=== PATIENT | female | born 1980 | race Caucasian/White ===

== ENCOUNTER 2017-04-13 18:36 | Emergency (ER) | payer OTHER ==
--- NOTE | 2017-04-13 18:59 | PDOC ---
Rapid Medical Evaluation Time Seen by Provider: 04/13/17 18:55 Medical Evaluation: Allergies Allergy/AdvReac Type Severity Reaction Status Date / Time No Known Drug Allergies Allergy Verified 04/13/17 18:54 04/13/17 18:55 The patient presents with a chief complaint of: [Abdominal pain radiating to the back. ] I have performed a brief in-person evaluation of this patient. Pertinent physical exam findings: vss, [RUQ pain, Abdomen is soft. RRR, Lungs clear on assessment. ] I have ordered the following: [Labs, Urinalysis, Urine , EKG. lipase ] The patient will proceed to the ED for further evaluation. Discharge Disposition - Diagnosis Abdominal pain Qualifiers: Abdominal location: right upper quadrant Qualified Code(s): R10.11 - Right upper quadrant pain - Referrals - Patient Instructions - Post Discharge Activity
[2017-04-13 19:00] VITALS: PULSE 72; BMI 25.7
[2017-04-13 20:31] LABS: BASO % 0.4 % (0-2.0); EOS % 0.3 % (0-4.5); HEMATOCRIT 34.7 % (32.4-45.2); HEMOGLOBIN 11.5 GM/dL (10.7-15.3); LYMPH % 46.5 % (8-40); MCH 25.8 pg (25.7-33.7); MCHC 33.1 g/dl (32.0-36.0); MEAN PLT VOLUME 7.9 fl (7.5-11.1); MONO % 5.3 % (3.8-10.2); NEUT % 47.5 % (42.8-82.8); PLATELET COUNT 136 K/MM3 (134-434); RBC 4.45 M/mm3 (3.60-5.2); RDW 14.8 % (11.6-15.6)
[2017-04-13 20:32] LABS: URINE APPEARANCE CLEAR; URINE BILIRUBIN NEGATIVE (NEGATIVE); URINE BLOOD 1+ (NEGATIVE); URINE COLOR YELLOW; URINE GLUCOSE (UA) NEGATIVE (NEGATIVE); URINE KETONE NEGATIVE (NEGATIVE); URINE LEUK ESTERASE NEGATIVE (NEGATIVE); URINE NITRITE NEGATIVE (NEGATIVE)
[2017-04-13 20:37] LABS: URINE PROTEIN 1+ (NEGATIVE)
[2017-04-13 20:38] LABS: EPI CELLS RARE /HPF (FEW); URINE MUCUS RARE
[2017-04-13 21:00] LABS: ALBUMIN 3.5 g/dl (3.4-5.0); ALK PHOS 69 U/L (45-117); ANION GAP 8 (8-16); BILIRUBIN,TOTAL 0.2 mg/dL (0.2-1.0); BLOOD UREA NITROGEN 15 mg/dL (7-18); CALCIUM 8.1 mg/dL (8.5-10.1); CHLORIDE 103 mmol/L (98-107); CO2 24 mmol/L (21-32); CREATININE 0.6 mg/dL (0.55-1.02); GLUCOSE,RANDOM 103 mg/dL (74-106); LIPASE 124 U/L (73-393); SGOT/AST 27 U/L (15-37); SGPT/ALT 27 U/L (12-78); SODIUM 135 mmol/L (136-145); TOT PROT 7.6 g/dl (6.4-8.2)
--- NOTE | 2017-04-13 22:18 | PDOC ---
History of Present Illness - General Chief Complaint: Pain Stated Complaint: CHEST PAIN Time Seen by Provider: 04/13/17 18:55 History Source: Patient - History of Present Illness Initial Comments: 04/13/17 22:26 36 year old female with three day history of worsening nausea, and epigastric pain radiating to the back. denies urinary symptoms, vomiting , diarrhea, fever , sick contacts. Past History - Past Medical History Allergies/Adverse Reactions: Allergies Allergy/AdvReac Type Severity Reaction Status Date / Time No Known Drug Allergies Allergy Verified 04/13/17 18:54 Home Medications: Ambulatory Orders Acetaminophen [Tylenol .Regular Strength -] 650 mg PO Q3H PRN #0 tablet Ibuprofen [Motrin -] 600 mg PO Q4H PRN #0 tablet 11/20/11 Famotidine [Pepcid -] 20 mg PO BID #14 tablet 04/14/17 Sucralfate [Carafate -] 1 gm PO TID #20 tablet 04/14/17 Asthma: No Cancer: No Cardiac Disorders: No COPD: No Diabetes: No HTN: No Seizures: No Thyroid Disease: No - Suicide/Smoking/Psychosocial Hx Smoking History: Never smoked Have you smoked in the past 12 months: No Information on smoking cessation initiated: No Hx Alcohol Use: No Drug/Substance Use Hx: No Substance Use Type: None Hx Substance Use Treatment: No Review of Systems - Review of Systems Able to Perform ROS?: Yes Is the patient limited Filipino proficient: No ABD/GI: Yes: Nausea, Abdominal cramping (epigastric) : No: Symptoms Reported, See HPI, Burning, Dysuria, Discharge, Frequency, Flank Pain, Hematuria, Incontinence, Pain, Urgency, Testicular Mass, Testicular Swelling, Lesions, Testicular Pain, Other *Physical Exam - Vital Signs Last Vital Signs Temp Pulse Resp BP Pulse Ox 98.6 F 72 18 126/75 100 04/13/17 18:57 04/13/17 18:57 04/13/17 18:57 04/13/17 18:57 04/13/17 18:57 - Physical Exam General Appearance: Yes: Appropriately Dressed Respiratory/Chest: positive: Lungs Clear, Normal Breath Sounds Cardiovascular: positive: Regular Rhythm, Regular Rate Gastrointestinal/Abdominal: positive: Normal Bowel Sounds, Soft Heart Score/ECG Review - ECG Intrepretation Rhythm: Regular Rhythm Comment:: 04/14/17 01:32 87bpm: NSR, lateral infarct ED Treatment Course - LABORATORY CBC & Chemistry Diagram: 04/13/17 20:11 04/13/17 20:11 - ADDITIONAL ORDERS Additional order review: Laboratory Results 04/13/17 04/13/17 04/13/17 20:11 20:00 20:00 Sodium 135 L Potassium 4.0 Chloride 103 Carbon Dioxide 24 Anion Gap 8 BUN 15 Creatinine 0.6 Creat Clearance w eGFR > 60 Random Glucose 103 Calcium 8.1 L Total Bilirubin 0.2 D AST 27 ALT 27 Alkaline Phosphatase 69 Total Protein 7.6 Albumin 3.5 Lipase 124 Urine Color Yellow Urine Appearance Clear Urine pH 5.0 Ur Specific Wheeler 1.026 Urine Protein 1+ H Urine Glucose (UA) Negative Urine Ketones Negative Urine Blood 1+ H Urine Nitrite Negative Urine Bilirubin Negative Urine Urobilinogen 2.0 H Ur Leukocyte Esterase Negative Urine WBC (Auto) 2 Urine RBC (Auto) 8 Ur Epithelial Cells Rare Urine Mucus Rare Urine HCG, Qual Negative 04/13/17 20:11 RBC 4.45 MCV 78.0 L MCHC 33.1 RDW 14.8 MPV 7.9 Neutrophils % 47.5 Lymphocytes % 46.5 H D Monocytes % 5.3 Eosinophils % 0.3 Basophils % 0.4 Progress Note - Progress Note Progress Note: A: cholelithiasis P; cbc cmp ua ucx Medical Decision Making - Medical Decision Making 04/14/17 00:21 all results discussed with patient using a [employer] neonatal nurse practitioner phone. strict return precautions reviewed with patient. 04/14/17 01:42 patient reports pain. will reevaluate prior to discharge. 04/14/17 03:39 patient continue to have pain. will give morphine. CTAP pending 04/14/17 05:29 pain improved. CTAP: WNL. will d/c home to follow up with GI. 04/14/17 06:26 Pain improved. will d/c home with close GI/ Surgery follow up/. *DC/Admit/Observation/Transfer Diagnosis at time of Disposition: Abdominal pain Qualifiers: Abdominal location: right upper quadrant Qualified Code(s): R10.11 - Right upper quadrant pain Cholelithiasis Qualifiers: Cholelithiasis location: gallbladder Cholecystitis presence: without cholecystitis Biliary obstruction: without biliary obstruction Qualified Code(s) : K80.20 - Calculus of gallbladder without cholecystitis without obstruction - Discharge Dispostion Disposition: HOME - Prescriptions Prescriptions: Famotidine [Pepcid -] 20 mg PO BID #14 tablet Sucralfate [Carafate -] 1 gm PO TID #20 tablet - Referrals Referrals: Galindo Gaviria MD [Staff Physician] - Call tomorrow - Patient Instructions Printed Discharge Instructions: Gallstones Additional Instructions: follow up with a surgeon/ GI doctor as soon as possible. avoid fatty food. start a bland diet continue carafate and pepcid as ordered. return to the ER if symptoms worsen. Print Language: SLOVENIAN - Post Discharge Activity Forms/Work/School Notes: Back to Work
[2017-04-13] MEDS ORDERED: ONDANSETRON 4 MG/2 ML VIAL IVPUSH ONE (22:23)
[2017-04-13] MEDS ORDERED: FAMOTIDINE IV 20 MG/12 ML VIAL IVPUSH ONE (22:33)
[2017-04-13] MEDS ORDERED: ONDANSETRON 4 MG/2 ML VIAL ONE (22:35)
[2017-04-13] MEDS ORDERED: DICYCLOMINE HCL 20 MG TABLET PO ONE (23:25)
[2017-04-13] MEDS ORDERED: FAMOTIDINE 20 MG/50 ML IVPB 20 MG/50 ML MG IVPB ONE (23:26)
[2017-04-13] MEDS ORDERED: DICYCLOMINE HCL 10 MG CAPSULE ONE (23:26)
[2017-04-13] MEDS ORDERED: morphine CARPU-JECT 2 MG/1 ML DISP.SYRIN IVPUSH ONE (23:36)
[2017-04-14] MEDS ORDERED: ACETAMINOPHEN 325 MG TABLET (FP) PO ONE (00:18)
[2017-04-14] MEDS ORDERED: ACETAMINOPHEN 325 MG TABLET (FP) ONE (00:27)
[2017-04-14] MEDS ORDERED: morphine CARPU-JECT 2 MG/1 ML DISP.SYRIN IVPUSH ONE (01:43)
[2017-04-14] MEDS ORDERED: morphine CARPU-JECT 4 MG/1 ML DISP.SYRIN ONE (01:45)
[2017-04-14] MEDS ORDERED: morphine CARPU-JECT 4 MG/1 ML DISP.SYRIN IVPUSH ONE (03:35)
[2017-04-14] MEDS ORDERED: HYDROmorphone HCL CARPU-JECT 1 MG/1 ML DISP.SYRIN IVPUSH ONE (03:46)
[2017-04-14] MEDS ORDERED: HYDROmorphone HCL CARPU-JECT 2 MG/1 ML DISP.SYRIN ONE (03:47)
[2017-04-14] MEDS ORDERED: KETOROLAC TROMETHAMINE 30 MG/1 ML VIAL IVPUSH ONE (05:34)
[2017-04-14] MEDS ORDERED: SUCRALFATE 1 GM TABLET (FP) ONE ×2 (05:44→05:50)
[2017-04-14] MEDS ORDERED: SUCRALFATE 1 GM/10 ML UNIT DOSE CUPS PO ONE (05:45)
[2017-04-14] MEDS ORDERED: KETOROLAC TROMETHAMINE 30 MG/1 ML VIAL ONE ×2 (05:45→05:50)
[2017-04-14 06:58] VITALS: BP 105/63; TEMP 98.1
--- NOTE | 2017-04-15 08:05 | EKG ---
Test Reason : Blood Pressure : / mmHG Vent. Rate : 087 BPM Atrial Rate : 087 BPM P-R Int : 136 ms QRS Dur : 086 ms QT Int : 344 ms P-R-T Axes : 000 121 126 degrees QTc Int : 413 ms NORMAL SINUS RHYTHM LATERAL INFARCT , AGE UNDETERMINED ABNORMAL ECG WHEN COMPARED WITH ECG OF 13-APR-2017 18:41, QRS AXIS SHIFTED RIGHT LATERAL INFARCT IS NOW PRESENT T WAVE INVERSION NOW EVIDENT IN LATERAL LEADS Confirmed by JH RIDER, NELLY ([id number]) on 04/15/2017 8:05:45 AM Referred By: Confirmed By:NELLY PEÑALOZA MD
--- NOTE | 2017-04-20 13:08 | EKG ---
Test Reason : Blood Pressure : / mmHG Vent. Rate : 069 BPM Atrial Rate : 069 BPM P-R Int : 152 ms QRS Dur : 084 ms QT Int : 412 ms P-R-T Axes : 051 057 054 degrees QTc Int : 441 ms NORMAL SINUS RHYTHM NORMAL ECG NO PREVIOUS ECGS AVAILABLE Confirmed by MELISSA BURNETTE MD ([id number]) on 04/20/2017 1:08:29 PM Referred By: Confirmed By:MELISSA BURNETTE MD
--- NOTE | 2017-04-20 13:08 | EKG ---
Test Reason : Blood Pressure : / mmHG Vent. Rate : 079 BPM Atrial Rate : 079 BPM P-R Int : 134 ms QRS Dur : 088 ms QT Int : 350 ms P-R-T Axes : 054 065 059 degrees QTc Int : 401 ms NORMAL SINUS RHYTHM POSSIBLE LEFT ATRIAL ENLARGEMENT BORDERLINE ECG WHEN COMPARED WITH ECG OF 14-APR-2017 01:30, T WAVE VARIATION Confirmed by MELISSA BURNETTE MD ([id number]) on 04/20/2017 1:08:26 PM Referred By: Confirmed By:MELISSA BURNETTE MD
== END 2017-04-14 06:46 | disposition home or self-care (01) ==
LOC: JER 18:36
PROC: 3E033NZ Introduction of Analgesics, Hypnotics, Sedatives into Peripheral Vein, Percutaneous Approach (ICD-10-PCS; principal; 2017-04-13)
PROC: 3E0333Z Introduction of Anti-inflammatory into Peripheral Vein, Percutaneous Approach (ICD-10-PCS; 2017-04-13)
PROC: 3E033GC Introduction of Other Therapeutic Substance into Peripheral Vein, Percutaneous Approach (ICD-10-PCS; 2017-04-13)
DX: K80.20 Calculus of gallbladder without cholecystitis without obstruction (principal)
CPT/HCPCS: 36415; 74176-TC; 76705-TC; 80053; 81003; 81015; 83690; 84703; 85025; 87086; 93005; 93010; 99282-25

== ENCOUNTER 2017-04-23 12:20 | Day surgery (SDC) | payer OTHER ==
[2017-04-22 17:49] VITALS: BMI 31.2
[~2017-04-23 12:20] MED LIST: BUPIVACAINE HCL/PF 0.5% (5MG/ML) 10 ML VIAL IJ ONE
[2017-04-23 12:58] LABS: INR 1.25 (0.82-1.09); PROTHROMBIN TIME (PATIENT) 14.1 SEC (9.98-11.88)
[2017-04-23] MEDS ORDERED: BUPIVACAINE HCL/PF 0.5% (5MG/ML) 10 ML VIAL ONE ×2 (13:48→14:01)
[2017-04-23] MEDS ORDERED: PROPOFOL 20 ML ONE (13:59)
[2017-04-23] MEDS ORDERED: ROCURONIUM BROMIDE 50 MG/5 ML VIAL ONE (13:59)
[2017-04-23] MEDS ORDERED: MIDAZOLAM HCL 2 MG/2 ML SINGLE DOSE VIAL ONE (14:00)
--- NOTE | 2017-04-23 14:09 | HP ---
History & Physical Update - History History: No Change - Physical Physical: No Change - Assessment Assessment: No Change - Plan Currently as noted:: For lap jimbo possible open as discussed in office 04/15/17
[2017-04-23] MEDS ORDERED: ceFAZolin SODIUM 1 GM VIAL IVPB ONE (14:24)
[2017-04-23] MEDS ORDERED: DEXAMETHASONE SOD PHOSPHATE 4 MG/1 ML VIAL ONE (14:48)
[2017-04-23] MEDS ORDERED: ceFAZolin SODIUM 1 GM VIAL ONE (14:48)
--- NOTE | 2017-04-23 14:52 | EKG ---
Test Reason : Blood Pressure : / mmHG Vent. Rate : 074 BPM Atrial Rate : 074 BPM P-R Int : 150 ms QRS Dur : 090 ms QT Int : 390 ms P-R-T Axes : 063 077 062 degrees QTc Int : 432 ms NORMAL SINUS RHYTHM NORMAL ECG WHEN COMPARED WITH ECG OF 14-APR-2017 01:50, NO SIGNIFICANT CHANGE WAS FOUND Confirmed by IRLANDA GONZALES MD ([id number]) on 04/23/2017 2:51:56 PM Referred By: Galindo Gaviria Confirmed By:IRLANDA GONZALES MD
[2017-04-23] MEDS ORDERED: IBUPROFEN 800 MG/8 ML IJ IVPB PRN (15:06)
[2017-04-23] MEDS ORDERED: ONDANSETRON 4 MG/2 ML VIAL IVPUSH PRN (15:06)
[2017-04-23] MEDS ORDERED: HYDROmorphone HCL CARPU-JECT 2 MG/1 ML DISP.SYRIN IVPUSH PRN (15:06)
[2017-04-23] MEDS ORDERED: oxyCODONE HCL 5 MG TABLET PO PRN (15:06)
[2017-04-23] MEDS ORDERED: GLYCOPYRROLATE 0.2 MG/1 ML VIAL ONE (15:12)
[2017-04-23] MEDS ORDERED: NEOSTIGMINE METHYLSULFATE 0.5 MG/ML - 10 ML MDV ONE (15:13)
[2017-04-23] MEDS ORDERED: LACTATED RINGERS SOLUTION 1,000 ML IV SCH (15:15)
[2017-04-23] MEDS ORDERED: BUPIVACAINE HCL/PF 0.5% (5MG/ML) 10 ML VIAL IJ ONE (15:22)
[2017-04-23] MEDS ORDERED: HYDROmorphone HCL CARPU-JECT 2 MG/1 ML DISP.SYRIN ONE (15:49)
--- NOTE | 2017-04-23 15:51 | OP ---
Operative Note - Note: Operative Date: 04/23/17 Pre-Operative Diagnosis: chronic cholecystitis, chronic cholelithiasis Operation: Laparoscopic cholecystectomy Post-Operative Diagnosis: Same as Pre-op Surgeon: Galindo Gaviria Kalsominer: Quiana Guardado Anesthesiologist/BLANKBOOK STITCHING MACHINE OPERATOR: Agnes Mancia Specimens Removed: gallbladder and contents Estimated Blood Loss (mls): 35 Fluid Volume Replaced (mls): 700 Operative Report Dictated: Yes
--- NOTE | 2017-04-23 15:52 | SURG ---
Surgery Web Developer Programmer Note Web Developer Programmer: Quiana Guardado PA-C Date of Service: 04/23/17 Diagnosis: chronic cholecystitis, chonic cholelithasis Procedure: laparoscopic cholecystectomy I was present for the entirety of the operative procedure. For further detail, please refer to operative report. Visit type - Case Type Case Type: Scheduled Admission - Emergency Emergency Visit: No - New patient This patient is new to me today: Yes Date on this admission: 04/23/17
[2017-04-23 16:53] VITALS: TEMP 98.2
[2017-04-23 19:24] VITALS: BP 119/68; PULSE 73
--- NOTE | 2017-04-26 14:56 | OP ---
DATE OF OPERATION: 04/23/2017 PREOPERATIVE DIAGNOSIS: Chronic cholecystitis, cholelithiasis. POSTOPERATIVE DIAGNOSIS: Chronic cholecystitis, cholelithiasis. PROCEDURE: Laparoscopic cholecystectomy. SURGEON: Galindo Gaviria MD PRODUCTION SAMPLER: JOSSELINE Holloway ANESTHESIA: General. OPERATIVE FINDINGS: Chronic cholecystitis and cholelithiasis. The rest of the findings were unremarkable. PROCEDURE: The patient was placed on the operating table in the supine position, and after the induction of general anesthesia, the patient's abdomen was prepped with ChloraPrep and draped in sterile fashion. A timeout was taken and pneumoperitoneum established above the umbilicus using a Veress needle to an intraabdominal pressure of 15 mmHg. A 5-mm supraumbilical port was placed as well as lateral 5-mm ports and a subxiphoid 12-mm port. Laparoscopy was carried out and the gallbladder was placed on cephalad and lateral traction and dissection was begun in the triangle of Calot, where adherent omentum to the gallbladder was taken down using blunt dissection and electrocautery. The peritoneum was opened over the neck of the gallbladder and the cystic duct identified and dissected proximally and distally using blunt dissection. In addition, the artery was similarly identified and dissected. Critical view of safety was taken and then the artery and duct were sequentially clipped twice proximally and twice distally with large hemoclips, were divided using the Endo Ethan after the artery and duct were clipped twice proximally and twice distally with large hemoclips. The gallbladder was then removed from the liver bed in a retrograde fashion using electrocautery. Prior to removal from the edge of the liver, hemostasis was checked for and noted to be good. The gallbladder was then removed from the edge of the liver, placed in a specimen retrieval bag and brought out through the subxiphoid port. Pneumoperitoneum was reestablished, hemostasis verified, irrigation carried out, and then all ports were removed under laparoscopic vision without evidence of bleeding from the port sites. The pneumoperitoneum was evacuated and all port sites were infiltrated with 0.5% Marcaine and the skin edges closed with 4-0 Monocryl in a subcuticular continuous fashion, followed by Steri-Strips and band-aids. The patient was aroused from general anesthesia and transferred to the post-anesthesia care unit in stable condition, awake and alert. Estimated blood loss 35 mL. Replacement was crystalloid. Drains: None. Specimens: Gallbladder and contents to Pathology. I, Galindo Gaviria, was physically present in the operating room from the time the patient was placed on the operating table until she was transferred to the post-anesthesia care unit in my accompaniment. MD ROSALIE Pool/[id number]
--- NOTE | 2017-04-27 14:44 | PATH ---
Surgical Pathology Report Patient Name: CASSANDRA AARON [facility]. Rec. #: [id number] /Age/Gender: 1980 (Age: 36) / F Account: [id number] Location: [facility] SURGICAL Taken: 04/23/2017 Received: 04/24/2017 Reported: 04/27/2017 Physicians: Galindo Gaviria MD Specimen(s) Received GALLBLADDER AND STONES Clinical History Chronic cholecystitis/cholelithiasis Final Diagnosis GALLBLADDER, CHOLECYSTECTOMY: CHRONIC CHOLECYSTITIS AND CHOLELITHIASIS. Electronically Signed Prabhakar Barajas M.D. Gross Description Received in formalin, labeled "gallbladder and stones," is a 6.2 x 1.5 x 1.3 cm. gallbladder with a 0.2 cm. in length portion of cystic duct attached. The outer surface is schafer-fraire with a focal defect and varies from smooth to shaggy. The lumen contains green, tenacious bile as well as abundant yellow, irregular to fragmented choleliths ranging from 0.1-0.6 cm in greatest dimension. The mucosa is green and focally eroded. The wall of the gallbladder measures 0.1 cm. in thickness. [place] sections are submitted in one cassette. 04/24/201704/24/2017
== END 2017-04-23 19:24 | disposition home or self-care (01) ==
LOC: JASU-SURG 12:20
PROVIDERS: ATTEND Surgery
PROC: 0FT44ZZ Resection of Gallbladder, Percutaneous Endoscopic Approach (ICD-10-PCS; principal; 2017-04-23 14:00)
DX: K80.10 Calculus of gallbladder with chronic cholecystitis without obstruction (principal)
CPT/HCPCS: 36415; 84703; 85610; 86850; 86900; 86901; 88304-TC; 93005; 93010; 94760

== ENCOUNTER 2017-05-07 13:32 | Inpatient (IN) | payer OTHER ==
--- NOTE | 2017-05-07 15:15 | PDOC ---
History of Present Illness - General Chief Complaint: Revisit, Lab Variance Stated Complaint: SENT BY PCP Time Seen by Provider: 05/07/17 15:13 History Source: Patient, Significant Other - History of Present Illness Initial Comments: 05/07/17 15:27 Patient is a 36-year-old female status post cholecystectomy on 04/23/17, no other past medical history, who presents emergency department today with body aches, headache, and abnormal lab workup. Patient states she was seen by her primary care doctor Dr. Christianson this afternoon. She was sent to the emergency department after her appointment for further workup. Patient states that she has had a headache for 2 weeks that has not resolved. She also states she has right leg pain and that her whole body hurts. Her boyfriend states that she is usually able to play soccer however due to the pain and fatigue she's been unable to play recently. Denies nausea, vomiting, abdominal pain, diarrhea, fever, sore throat, dizziness, lightheadedness, chest pain, shortness of breath and difficulty breathing. Past History - Travel Traveled outside of the country in the last 30 days: No Close contact w/someone who was outside of country & ill: No - Past Medical History Allergies/Adverse Reactions: Allergies Allergy/AdvReac Type Severity Reaction Status Date / Time No Known Drug Allergies Allergy Verified 05/07/17 13:38 Home Medications: Ambulatory Orders NK [No Known Home Medication] 05/07/17 Anemia: No Asthma: No Cancer: No Cardiac Disorders: No CVA: No COPD: No CHF: No DVT: No Dementia: No Diabetes: No GI Disorders: No Disorders: No HTN: No Hypercholesterolemia: No Liver Disease: No Seizures: No Thyroid Disease: No - Immunization History Immunization Up to Date: Yes - Suicide/Smoking/Psychosocial Hx Smoking History: Never smoked Have you smoked in the past 12 months: No Information on smoking cessation initiated: No Hx Alcohol Use: No Drug/Substance Use Hx: No Substance Use Type: None Hx Substance Use Treatment: No Review of Systems - Review of Systems Able to Perform ROS?: Yes Comments:: 05/07/17 15:53 CONSTITUTIONAL: Present: malaise, body aches, fatigue Absent: fever, chills, diaphoresis, generalized weakness, loss of appetite HEENT: Absent: rhinorrhea, nasal congestion, throat pain, throat swelling, difficulty swallowing, mouth swelling, ear pain, eye pain, visual Changes CARDIOVASCULAR: Absent: chest pain, loss of consciousness, palpitations, irregular heart rate, peripheral edema RESPIRATORY: Absent: cough, shortness of breath, dyspnea with exertion, orthopnea, wheezing, stridor, hemoptysis GASTROINTESTINAL: Absent: abdominal pain, abdominal distension, nausea, vomiting, diarrhea, constipation, melena, hematochezia GENITOURINARY: Absent: dysuria, frequency, urgency, hesitancy, hematuria, flank pain, genital pain MUSCULOSKELETAL: Present: R leg pain Absent: arthralgia, joint swelling SKIN: Absent: rash, itching, pallor HEMATOLOGIC/IMMUNOLOGIC: Absent: easy bleeding, easy bruising, lymphadenopathy, frequent infections ENDOCRINE: Absent: unexplained weight gain, unexplained weight loss, heat intolerance, cold intolerance NEUROLOGIC: Present: headache Absent: focal weakness or paresthesias, dizziness, unsteady gait, seizure, mental status changes, bladder or bowel incontinence PSYCHIATRIC: Absent: anxiety, depression, suicidal or homicidal ideation, hallucinations. Is the patient limited Slovak proficient: No *Physical Exam - Vital Signs Last Vital Signs Temp Pulse Resp BP Pulse Ox 98.6 F 113 H 17 129/96 96 05/07/17 13:39 05/07/17 13:39 05/07/17 13:39 05/07/17 13:39 05/07/17 13:39 - Physical Exam Comments: 05/07/17 15:55 GENERAL: Well developed, well nourished. Awake and alert. No acute distress. HEENT: Normocephalic, atraumatic. PERRLA, EOMI. No conjunctival pallor. Sclera are non- icteric. Moist mucous membranes. Oropharynx is clear. NECK: Supple. Full ROM. No JVD. Carotid pulses 2+ and symmetric, without bruits. No thyromegaly. No lymphadenopathy. CARDIOVASCULAR: Regular rate and rhythm. No murmurs, rubs, or gallops. Distal pulses are 2+ and symmetric. PULMONARY: No evidence of respiratory distress. Lungs clear to auscultation bilaterally. No wheezing, rales or rhonchi. ABDOMINAL: Soft. Non-tender. Non-distended. No rebound or guarding. No organomegaly. Normoactive bowel sounds. MUSCULOSKELETAL Normal range of motion at all joints. No bony deformities or tenderness. No CVA tenderness. EXTREMITIES: No cyanosis. No clubbing. No edema. No calf tenderness. SKIN: Warm and dry. Normal capillary refill. No rashes. No jaundice. NEUROLOGICAL: Alert, awake, appropriate. Cranial nerves 2-12 intact. No deficits to light touch and temperature in face, upper extremities and lower extremities. No motor deficits in the in face, upper extremities and lower extremities. Normoreflexic in the upper and lower extremities. Normal speech. Toes are down- going bilaterally. Gait is normal without ataxia. PSYCHIATRIC: Cooperative. Good eye contact. Appropriate mood and affect. ED Treatment Course - LABORATORY CBC & Chemistry Diagram: 05/07/17 15:30 05/07/17 15:30 Medical Decision Making - Medical Decision Making 05/07/17 15:55 Patient is a 36-year-old female past medical history of cholecystectomy on , who presents emergency department today complaining of headaches and generalized body aches for 2 weeks. Patient presented with basic lab work done by her primary care doctor Dr. Christianson. Notable labs show a platelet count of 86, blast-like cells, myelocytes, metamyelocytes, elevated liver enzymes. Post surgical vs leukemia?Will repeat lab work at this time. We will also obtain right upper quadrant ultrasound as well as head CT due to the headache. D/t R lower leg pain and recent surgery, will r/o DVT. 1.CBC, CMP, PT/INR, lipase, UA, UC, U 2. Reglan and Benadryl IV fluids 3.head CT, right upper quadrant ultrasound, right lower extremity ultrasound 4.reevaluate 05/07/17 17:[address]: Negative for bleed, ischemia, or mass at this time Labs notable for thrombocytopenia at 85. This is markedly changed from 2017. Liver enzymes are also elevated and doubled. Bilirubin is normal at this time. Waiting on ultrasound results. Pt. feeling better after reglan and zofran. Lab called to report atypical lymphocytes and blast cells in the peripheral smear. First page Dr. Gaviria to discuss patient. 05/07/17 17:[address] Gaviria. Discussed the case. States that in the setting of no abdominal pain, no fever, and normal bilirubin, will wait for ultrasound results. 05/07/17 18:28 US RLE: negative for DVT Abdomen Ultrasound results discussed with Dr. Gaviria. No common biliary duct dilatation, residual fluid in the gallbladder fossa a normal finding after surgery. Given no abdominal pain, normal bilirubin, and no duct dilitaton, less likely retained stone. Will call [facility] at this time for admission for thrombocytopenia and elevated liver enzymes. Anticipate heme/onc work up. 05/07/17 18:[address] Reyes, Case discussed and agrees with admission at this time. Admission order under Dr. Nelson *DC/Admit/Observation/Transfer Diagnosis at time of Disposition: Elevated liver enzymes, Thrombocytopenia - Discharge Dispostion Condition at time of disposition: Stable Admit: Yes - Referrals - Patient Instructions - Post Discharge Activity
[2017-05-07] MEDS ORDERED: SODIUM CHLORIDE 1,000 ML IV ONE (16:00)
[2017-05-07] MEDS ORDERED: METOCLOPRAMIDE HCL INJECTION 10 MG/2 ML VIAL IVPB ONE (16:02)
[2017-05-07 16:04] LABS: HEMATOCRIT 30.1 % (32.4-45.2); HEMOGLOBIN 9.9 GM/dL (10.7-15.3); MCH 25.5 pg (25.7-33.7); MEAN CELL VOLUME 77.2 fl (80-96); MEAN PLT VOLUME 7.6 fl (7.5-11.1); PLATELET COUNT 85 K/MM3 (134-434); RDW 15.3 % (11.6-15.6); WHITE BLOOD COUNT 5.5 K/mm3 (4.0-10.0)
[2017-05-07 16:10] LABS: INR 1.12 (0.82-1.09); PROTHROMBIN TIME (PATIENT) 12.6 SEC (9.98-11.88)
[2017-05-07] MEDS ORDERED: METOCLOPRAMIDE HCL INJECTION 10 MG/2 ML VIAL ONE (16:14)
[2017-05-07 16:25] LABS: ALBUMIN 2.9 g/dl (3.4-5.0); ANION GAP 8 (8-16); BILIRUBIN,TOTAL 0.5 mg/dL (0.2-1.0); BLOOD UREA NITROGEN 6 mg/dL (7-18); CALCIUM 7.8 mg/dL (8.5-10.1); CHLORIDE 101 mmol/L (98-107); CO2 28 mmol/L (21-32); CREATININE 0.4 mg/dL (0.55-1.02); GLUCOSE,RANDOM 86 mg/dL (74-106); POTASSIUM 3.7 mmol/L (3.5-5.1); SGOT/AST 116 U/L (15-37); SODIUM 137 mmol/L (136-145); TOT PROT 7.3 g/dl (6.4-8.2)
[2017-05-07 16:28] LABS: URINE APPEARANCE CLEAR; URINE BILIRUBIN NEGATIVE (NEGATIVE); URINE BLOOD 1+ (NEGATIVE); URINE COLOR YELLOW; URINE GLUCOSE (UA) NEGATIVE (NEGATIVE); URINE KETONE NEGATIVE (NEGATIVE); URINE LEUK ESTERASE NEGATIVE (NEGATIVE); URINE NITRITE NEGATIVE (NEGATIVE)
[2017-05-07 16:29] LABS: URINE PROTEIN 1+ (NEGATIVE)
[2017-05-07 16:34] LABS: EPI CELLS RARE /HPF (FEW); URINE MUCUS RARE
[2017-05-07 16:37] LABS: ALK PHOS 546 U/L (45-117); SGPT/ALT 130 U/L (12-78)
--- NOTE | 2017-05-07 18:47 | PDOC ---
*Physical Exam - Vital Signs Last Vital Signs Temp Pulse Resp BP Pulse Ox 98.0 F 88 16 110/64 99 05/07/17 18:02 05/07/17 18:02 05/07/17 18:02 05/07/17 18:02 05/07/17 18:02 ED Treatment Course - LABORATORY CBC & Chemistry Diagram: 05/08/17 08:22 05/08/17 08:22 - ADDITIONAL ORDERS Additional order review: Laboratory Results 05/07/17 05/07/17 05/07/17 16:11 16:01 15:30 PT with INR INR Sodium Potassium Chloride Carbon Dioxide Anion Gap BUN Creatinine Creat Clearance w eGFR Random Glucose Calcium Total Bilirubin AST ALT Alkaline Phosphatase Total Protein Albumin Lipase Urine Color Yellow Urine Appearance Clear Urine pH 6.0 Ur Specific [place] 1.014 Urine Protein 1+ H Urine Glucose (UA) Negative Urine Ketones Negative Urine Blood 1+ H Urine Nitrite Negative Urine Bilirubin Negative Urine Urobilinogen 2.0 H Ur Leukocyte Esterase Negative Urine WBC (Auto) 2 Urine RBC (Auto) 1 Ur Epithelial Cells Rare Urine Mucus Rare Urine HCG, Qual Negative Blood Type O POSITIVE Antibody Screen Negative 05/07/17 05/07/17 05/07/17 15:30 15:30 14:15 PT with INR 12.60 H INR 1.12 Sodium 137 Potassium 3.7 Chloride 101 Carbon Dioxide 28 Anion Gap 8 BUN 6 L Creatinine 0.4 L Creat Clearance w eGFR > 60 Random Glucose 86 Calcium 7.8 L Total Bilirubin 0.5 D AST 116 H ALT 130 H Alkaline Phosphatase 546 H Total Protein 7.3 Albumin 2.9 L Lipase 172 Urine Color Urine Appearance Urine pH Ur Specific [place] Urine Protein Urine Glucose (UA) Urine Ketones Urine Blood Urine Nitrite Urine Bilirubin Urine Urobilinogen Ur Leukocyte Esterase Urine WBC (Auto) Urine RBC (Auto) Ur Epithelial Cells Urine Mucus Urine HCG, Qual Blood Type Antibody Screen 05/07/17 15:30 RBC 3.90 MCV 77.2 L MCHC 33.0 RDW 15.3 MPV 7.6 Neutrophils % No Result Required. Lymphocytes % No Result Required. - Medications Given in the ED: ED Medications Discontinued Medications Generic Name Dose Route Start Last Admin Trade Name Freq PRN Reason Stop Dose Admin Metoclopramide HCl 10 mg 05/07/17 16:02 05/07/17 16:22 Reglan Injection - IVPB 05/07/17 16:03 10 mg ONCE ONE Administration Medical Decision Making - Medical Decision Making 05/07/17 18:46 Pt seen by the Advanced Practice Provider under my direct supervision Pt interviewed and examined Ancillary studies reviewed I agree with plan as outlined by the Advanced Practice Provider JOSSELINE [place] I agree. Patient will need a surgery, GI, and heme consult for further workup and management. *DC/Admit/Observation/Transfer Diagnosis at time of Disposition: Elevated liver enzymes, Thrombocytopenia - Discharge Dispostion Condition at time of disposition: Stable - Referrals - Patient Instructions - Post Discharge Activity
[2017-05-07] MEDS ORDERED: ONDANSETRON 4 MG TABLET PO PRN (19:06)
--- NOTE | 2017-05-07 19:39 | HP ---
CHIEF COMPLAINT: PCP: Dr. Lam HISTORY OF PRESENT ILLNESS: This is a 36 year old female with no known past medical history presents to the emergency room with generalized body weakness and headache that has progressively gotten worse over the past week. Headache provoked ER visit. She admits tot he decrease appetite and 16lb unintentional wt loss over the past month. She is s/p lap jimbo on 04/23/17. She denies fever, chills, n, v, d, abdominal pain, chest pain, sob, leg swelling, recent travel or sick contacts. Family brought in lab work from day prior that was significant for blasts cells and metamyelocytes on cbc. ER course was notable for elevated liver enzymes and alk phos. Abdominal US showing fatty sac wehre gallbladder was; cannot r/o infection/bile leak. Recent Travel: no PAST MEDICAL HISTORY: hyperglycemia; PAST SURGICAL HISTORY: lap cholecystectomy Social History: Smoking:no Alcohol:no Drugs: no Family History: Allergies No Known Drug Allergies Allergy (Verified 05/07/17 13:38) HOME MEDICATIONS: Home Medications Medication Instructions Recorded NK [No Known Home Medication] 05/07/17 REVIEW OF SYSTEMS as above PHYSICAL EXAMINATION Vital Signs - 24 hr 05/07/17 05/07/17 13:39 18:02 Temperature 98.6 F 98.0 F Pulse Rate 113 H Pulse Rate [ 88 Apical] Respiratory 17 16 Rate Blood Pressure 129/96 Blood Pressure 110/64 [Left Arm] O2 Sat by Pulse 96 99 Oximetry (%) GENERAL: Awake, alert, and fully oriented, in no acute distress. HEAD: Normal with no signs of trauma. EYES: Pupils equal, round and reactive to light, extraocular movements intact, sclera anicteric, conjunctiva clear. No lid lag. EARS, NOSE, THROAT: Ears normal, nares patent, oropharynx clear without exudates. Moist mucous membranes. NECK: Normal range of motion, supple without lymphadenopathy, JVD, or masses. LUNGS: Breath sounds equal, clear to auscultation bilaterally. No wheezes, and no crackles. No accessory muscle use. HEART: Regular rate and rhythm, normal S1 and S2 without murmur, rub or gallop. ABDOMEN: Soft, nontender, not distended, normoactive bowel sounds, no guarding, no rebound, no masses. No hepatomegaly or splenomegaly. MUSCULOSKELETAL: Normal range of motion at all joints. No bony deformities or tenderness. No CVA tenderness. UPPER EXTREMITIES: 2+ pulses, warm, well-perfused. No cyanosis. No clubbing. No peripheral edema. LOWER EXTREMITIES: 2+ pulses, warm, well-perfused. No calf tenderness. No peripheral edema. NEUROLOGICAL: Cranial nerves II-XII intact. Normal speech. Normal gait. PSYCHIATRIC: Cooperative. Good eye contact. Appropriate mood and affect. SKIN: Warm, dry, normal turgor, no rashes or lesions noted, normal capillary refill. Laboratory Results - last 24 hr 05/07/17 05/07/17 05/07/17 14:15 15:30 15:30 WBC 5.5 RBC 3.90 Hgb 9.9 L D Hct 30.1 L MCV 77.2 L MCH 25.5 L MCHC 33.0 RDW 15.3 Plt Count 85 L D MPV 7.6 Neutrophils % No Result Required. Lymphocytes % No Result Required. PT with INR 12.60 H INR 1.12 Sodium Potassium Chloride Carbon Dioxide Anion Gap BUN Creatinine Creat Clearance w eGFR Random Glucose Calcium Total Bilirubin AST ALT Alkaline Phosphatase Total Protein Albumin Lipase 172 Urine Color Urine Appearance Urine pH Ur Specific [place] Urine Protein Urine Glucose (UA) Urine Ketones Urine Blood Urine Nitrite Urine Bilirubin Urine Urobilinogen Ur Leukocyte Esterase Urine WBC (Auto) Urine RBC (Auto) Ur Epithelial Cells Urine Mucus Urine HCG, Qual Blood Type Antibody Screen 05/07/17 05/07/17 05/07/17 15:30 15:30 16:01 WBC RBC Hgb Hct MCV MCH MCHC RDW Plt Count MPV Neutrophils % Lymphocytes % PT with INR INR Sodium 137 Potassium 3.7 Chloride 101 Carbon Dioxide 28 Anion Gap 8 BUN 6 L Creatinine 0.4 L Creat Clearance w eGFR > 60 Random Glucose 86 Calcium 7.8 L Total Bilirubin 0.5 D AST 116 H ALT 130 H Alkaline Phosphatase 546 H Total Protein 7.3 Albumin 2.9 L Lipase Urine Color Yellow Urine Appearance Clear Urine pH 6.0 Ur Specific [place] 1.014 Urine Protein 1+ H Urine Glucose (UA) Negative Urine Ketones Negative Urine Blood 1+ H Urine Nitrite Negative Urine Bilirubin Negative Urine Urobilinogen 2.0 H Ur Leukocyte Esterase Negative Urine WBC (Auto) 2 Urine RBC (Auto) 1 Ur Epithelial Cells Rare Urine Mucus Rare Urine HCG, Qual Blood Type O POSITIVE Antibody Screen Negative 05/07/17 16:11 WBC RBC Hgb Hct MCV MCH MCHC RDW Plt Count MPV Neutrophils % Lymphocytes % PT with INR INR Sodium Potassium Chloride Carbon Dioxide Anion Gap BUN Creatinine Creat Clearance w eGFR Random Glucose Calcium Total Bilirubin AST ALT Alkaline Phosphatase Total Protein Albumin Lipase Urine Color Urine Appearance Urine pH Ur Specific [place] Urine Protein Urine Glucose (UA) Urine Ketones Urine Blood Urine Nitrite Urine Bilirubin Urine Urobilinogen Ur Leukocyte Esterase Urine WBC (Auto) Urine RBC (Auto) Ur Epithelial Cells Urine Mucus Urine HCG, Qual Negative Blood Type Antibody Screen ASSESSMENT/PLAN: This is a 36 year old female with generalized weakness and body pain, with recent lap jimbo and lab work stating new blast cells. Will get heme work up. #weakness/abnormal smear: r/o leukemia -blasts/metamyelocytes found on smear; -pathologist to review in am -IVF -heme/onc consult #elevated liver enzymes:\ -abdominal US sowing fatty area in place of gallbladder; cannot r/o infection/ bile leak -will trend CMP -hepatitis panel -sx consult #DM: Hemoglobin A1C on recent lab work 6.4 -BGM -insulin ss Fluids: NS 125mls/hr x 1 bag Electrolytes monitor Diet: diabetic VTE: heparin sq Disposition: med surg Case discussed with attending Dr. Leslie Hatfield- PGY2 Problem List - Problem (1) Elevated liver enzymes Code(s): R74.8 - ABNORMAL LEVELS OF OTHER SERUM ENZYMES (2) Thrombocytopenia Code(s): D69.6 - THROMBOCYTOPENIA, UNSPECIFIED Visit type - Emergency Visit Emergency Visit: Yes ED Registration Date: 05/07/17 Care time: The patient presented to the Emergency Department on the above date and was hospitalized for further evaluation of their emergent condition. - New Patient This patient is new to me today: Yes Date on this admission: 05/07/17 - Critical Care Critical Care patient: No
[2017-05-07] MEDS ORDERED: SODIUM CHLORIDE 1,000 ML IV SCH (20:30)
--- NOTE | 2017-05-07 22:15 | PN ---
Teaching Attending Note Name of Resident: Marilyn Hatfield ATTENDING PHYSICIAN STATEMENT I saw and evaluated the patient. I reviewed the resident's note and discussed the case with the resident. I agree with the resident's findings and plan as documented. SUBJECTIVE:36yo F wtih PMH acute cholecystitis s/p lap choley on presenting with diffuse myalgia and CARDENAS intermittently since the end of march. sometimes assoc with chills and productive cough of white phlegm. states shes been taking tylenol 4tabs/day (500mg tabs) since that time with some relief. assoc with anorexia and 16lb weight loss during this time. went to see her PMD who did lab work and instructed her to come to ER due to blast and metamyelocytes seen on peripheral smear. denies CP, SOB, fever, rigors, N/V/C/D , rashes or recent travel. no abx use recently. does have small children at home who have had cough but no other symptoms. no other sick contacts. does endorse menorrhagia. LMP 04/27/17. never received blood products in the past. OBJECTIVE: Last Vital Signs Temp Pulse Resp BP Pulse Ox 98.0 F 88 16 110/64 99 05/07/17 18:02 05/07/17 18:02 05/07/17 18:02 05/07/17 18:02 05/07/17 18:02 General lethargic HEENT moist oral mucosa, no pharngeal erythema or exudate. no LN CV S1 S2 RRR no murmur/rub/gallop Lungs CTA B/L no wheezing/rales/rhonchi Abdomen soft NT/ND no rebound or guarding Extremities no edema, no rashes ASSESSMENT AND PLAN: 36yo F with PMH acute cholecystisis with lap choley presenting with myalgias, CARDENAS , cough and chills 1. + constitutional symptoms- medicine admission. flu vs acute viral hepatitis vs hematolgic cause. check flu swab, HIV. concern for blood work done at PMD office. repeat peripheral smear, not the time of year for tick borne illnesses and have not received blood products. Hematology consult. IVF, symptomatic support. 2. Microcytic anemia- no active bleeding. check iron studies. no indication for txn at this time. 3. Thrombocytopenia- hematology consulted. no active bleeding. no indication for plt transfusion 4. Transmainitis- could be due to significant tylenol use. check Tylenol level, hepatitis panel, GGT. u/s done shows normal sized liver with echotecture. low concern for bile leak that could be causing this as bili is normal. surgery consulted by ER 5. DVT ppx- JOSE G
[2017-05-07] MEDS: INSULIN SLIDING SCALE (NOVOLOG) 1 VIAL SQ SCH (22:51)
[2017-05-08] MEDS: INSULIN SLIDING SCALE (NOVOLOG) 1 VIAL SQ SCH ×4 (07:20→21:04)
--- NOTE | 2017-05-08 08:17 | MSN ---
Progress Note (short form) - Note Progress Note: Subjective: Patient states that this morning she has no leg pain/ weakness and no headache. Patient currently menstruating. Patient states she has had a cough since yesterday with white sputum. 36yo F s/p cholecystectomy on 04/23 who presented to the ER after her PCP Dr. Christianson told her to come after finding blast/ metamyelocytes on peripheral smear in addition to her symptoms. Patient presented with intermittent neck pain with headache to the occipital area for about 1 week. When the pain began it was 10/10, pain is alleviated with tylenol. At the onset of neck pain, patient states that she also had intermittent b/l leg pain that made her limp when she walks. Pain is now only on her right leg, the left leg pain resolved 3 days ago. Patient had lost about 16lbs for the past month. Patient denies having fever or chills but notes that sometimes her eyes feel hot. Patient denies chest pain, N/V/D, abdominal pain. Objective: Last Vital Signs Temp Pulse Resp BP Pulse Ox 99.0 F 81 18 105/63 99 05/08/17 06:00 05/08/17 06:00 05/08/17 06:00 05/08/17 06:00 05/08/17 06:00 General: F, in no acute distress, sitting comfortably on her bed HEENT: anicteric. pupils were dilated 5-6mm, equally round and reactive to light. EOMI. no tenderness of the neck on palpation. mucous membranes moist. Heart: RRR. no rubs, murmurs or gallops appreciated. Lungs: CTA b/l Abdomen: one incision scar 4cm above umbilicus noted. normoactive bowel sounds x4, nontender to palpation. Extremities: pulses 2+ b/l on UE and LE. 5/5 motor strength throughout UE and LE , sensation grossly intact throughout. CBC, BMP 05/07/17 15:30 05/07/17 15:30 CBC, BMP 05/08/17 08:22 05/08/17 08:22 Abnormal Lab Results 05/07/17 05/08/17 05/08/17 16:01 08:22 08:22 RBC 3.45 L Hgb 8.5 L D Hct 26.9 L MCV 77.9 L MCH 24.7 L MCHC 31.6 L Plt Count 60 L D MPV 7.4 L Neutrophils % (Manual) 29.3 L Lymphocytes % (Manual) 53.5 H Monocytes % (Manual) 1 L D Blast Cells % (Manual) Nucleated RBC % 4 H PT with INR BUN 6 L Creatinine 0.3 L Calcium 7.6 L Ferritin GGT AST 73 H ALT 99 H Alkaline Phosphatase 513 H Total Protein 6.3 L Albumin 2.5 L Urine Protein 1+ H Urine Blood 1+ H Urine Urobilinogen 2.0 H 05/08/17 08:22 RBC Hgb Hct MCV MCH MCHC Plt Count MPV Neutrophils % (Manual) Lymphocytes % (Manual) Monocytes % (Manual) Blast Cells % (Manual) 7% Nucleated RBC % PT with INR BUN Creatinine Calcium Ferritin 904.289 H GGT 345 H AST ALT Alkaline Phosphatase Total Protein Albumin Urine Protein Urine Blood Urine Urobilinogen Imaging: Leg US 05/07 No evidence of right lower extremity deep vein thrombosis, as above. Abd US 05/07 Status post cholecystectomy with postsurgical changes in the gallbladder fossa including a small collection as above, which is presumably a postsurgical serosanguineous collection. Superimposed infection or biliary leak are not excluded. Head CT w/o contrast 05/07 No acute intracranial hemorrhage, mass effects or hydrocephalus. Assessment/ Plan: 36yo F s/p cholecystectomy on 04/23 who presented to the ER due to blast/ metamelanocytes found by PCP, generalized headache and LE weakness was found to have 7% blast cells on repeat CBC, microcytic anemia and elevated LFTs. # CBC with diff abnormalities + generalized pain/ weakness. CML? - lymphocytes 53.5, 7% blast cells, 1+ polychromasia, poikilocytosis, tear drop cels and evalocytes. 3+ anisocytosis and microcytosis - heme-onc consult, recs appreciated - HIV serology negative - father has blood disorder (unsure what) # transaminitis possibly due to tylenol or blood disorder or hepatitis? - possibly due to tylenol use - hepatitis panel pending - US shows postsurgical serosanguineous collection, low suspicion for biliary leak - surgery consult (Dr. Gaviria) doubt case is surgically related # microcytic anemia - patient currently menstruating, reports heavy flow yesterday - iron studies: ferritin 904. pending total iron, TIBC. likely anemia of chronic disease #thrombocytopenia - no evidence of acute bleeding besides menorrhea - transfuse platelets if level <50,000 # FEN fluid: po electrolytes: wnl. replete as needed nutrition: po diabetic diet.
[2017-05-08 08:53] LABS: HEMATOCRIT 26.9 % (32.4-45.2); HEMOGLOBIN 8.5 GM/dL (10.7-15.3); MCH 24.7 pg (25.7-33.7); MCHC 31.6 g/dl (32.0-36.0); MEAN CELL VOLUME 77.9 fl (80-96); MEAN PLT VOLUME 7.4 fl (7.5-11.1); PLATELET COUNT 60 K/MM3 (134-434); RBC 3.45 M/mm3 (3.60-5.2); RDW 15.6 % (11.6-15.6); WHITE BLOOD COUNT 4.1 K/mm3 (4.0-10.0)
[2017-05-08 09:07] LABS: ALBUMIN 2.5 g/dl (3.4-5.0); ANION GAP 10 (8-16); BILIRUBIN,TOTAL 0.3 mg/dL (0.2-1.0); BLOOD UREA NITROGEN 6 mg/dL (7-18); CALCIUM 7.6 mg/dL (8.5-10.1); CHLORIDE 106 mmol/L (98-107); CO2 24 mmol/L (21-32); CREATININE 0.3 mg/dL (0.55-1.02); GLUCOSE,RANDOM 78 mg/dL (74-106); POTASSIUM 3.6 mmol/L (3.5-5.1); SGOT/AST 73 U/L (15-37); SGPT/ALT 99 U/L (12-78); SODIUM 140 mmol/L (136-145); TOT PROT 6.3 g/dl (6.4-8.2)
[2017-05-08 09:08] LABS: ALK PHOS 513 U/L (45-117)
[2017-05-08 10:34] LABS: ANISOCYTOSIS 3+; MACROCYTOSIS 0; OVALOCYTE 1+; PLATELET ESTIMATE DECREASED; TEAR DROP CELLS 1+
[2017-05-08 12:07] VITALS: BMI 27.6
--- NOTE | 2017-05-08 13:36 | CONSULT ---
- Consultation REQUESTING PROVIDER: Leslie RIDER CONSULT REQUEST: We have been asked to surgically evaluate this patient for elevated LFT's. PCP:Dwight Parsons MD HISTORY OF PRESENT ILLNESS: 36 y/o female s/p uneventful alesha choi 04/09; she returned to the office last week w/a myriad of somatic c/o's w/o nausea/vomting or abdominal pain and eating w/o difficulty; I sent her to see a PCP; Dr. Christianson; blood work was done and after the results were available she was sent to the ER for admission and w/u; she is eating and tolerating a diet w/o c/p's of abdominal pain. PMHx: none PSHx: alesha jimbo 04/23/17 Home Medications Medication Instructions Recorded NK [No Known Home Medication] 05/07/17 Allergies Allergy/AdvReac Type Severity Reaction Status Date / Time No Known Drug Allergies Allergy Verified 05/07/17 13:38 PHYSICAL EXAM: GENERAL: Awake, alert, and fully oriented, in no acute distress. HEAD: Normal with no signs of trauma. EYES: PERRL, sclera anicteric, conjunctiva clear. NECK: Normal ROM, supple without lymphadenopathy, JVD, or masses. ABDOMEN: Soft, nontender, not distended, normoactive bowel sounds, no guarding, no rebound, no masses. No organomegaly. Healed port sites. MUSCULOSKELETAL: Normal ROM at all joints. No bony deformities or tenderness. No CVA tenderness. UPPER EXTREMITIES: 2+ pulses, warm, well-perfused. No cyanosis. Cap refill <2 seconds. No peripheral edema. LOWER EXTREMITIES: 2+ pulses, warm, well-perfused. No calf tenderness. No peripheral edema. NEUROLOGICAL: Normal speech, gait not observed. PSYCH: Cooperative. Good eye contact. Appropriate mood and affect. SKIN: Warm, dry, normal turgor, no rashes or lesions noted. Vital Signs Temperature 99.2 F 05/08/17 12:07 Pulse Rate 89 05/08/17 12:07 Respiratory Rate 18 05/08/17 12:19 Blood Pressure 130/73 05/08/17 12:07 O2 Sat by Pulse Oximetry (%) 99 05/08/17 06:00 Lab Results WBC 4.1 K/mm3 (4.0-10.0) 05/08/17 08:22 RBC 3.45 M/mm3 (3.60-5.2) L 05/08/17 08:22 Hgb 8.5 GM/dL (10.7-15.3) L D 05/08/17 08:22 Hct 26.9 % (32.4-45.2) L 05/08/17 08:22 MCV 77.9 fl (80-96) L 05/08/17 08:22 MCHC 31.6 g/dl (32.0-36.0) L 05/08/17 08:22 RDW 15.6 % (11.6-15.6) 05/08/17 08:22 Plt Count 60 K/MM3 (134-434) L D 05/08/17 08:22 Sodium 140 mmol/L (136-145) 05/08/17 08:22 Potassium 3.6 mmol/L (3.5-5.1) 05/08/17 08:22 Chloride 106 mmol/L (98-107) 05/08/17 08:22 Carbon Dioxide 24 mmol/L (21-32) 05/08/17 08:22 Anion Gap 10 (8-16) 05/08/17 08:22 BUN 6 mg/dL (7-18) L 05/08/17 08:22 Creatinine 0.3 mg/dL (0.55-1.02) L 05/08/17 08:22 Random Glucose 78 mg/dL (74-106) 05/08/17 08:22 Calcium 7.6 mg/dL (8.5-10.1) L 05/08/17 08:22 Blood Type O POSITIVE 05/07/17 15:30 Antibody Screen Negative 05/07/17 15:30 INR 1.12 (0.82-1.09) 05/07/17 15:30 w/u to date reviewed; doubt current c/o's and lab abnormalities are surgically releated IMP: s/p lap jimbo w/other c/o;s and lab abnormalties in the process of w/u. PLAN: No surgical intervention indicated at this time; will f/uas w/u progresses. Galindo Gaviria MD FACS Visit type - Case Type Case Type: ED Admission - Emergency Emergency Visit: Yes ED Registration Date: 05/07/17 Care time: The patient presented to the Emergency Department on the above date and was hospitalized for further evaluation of their emergent condition. - New patient This patient is new to me today: Yes Date on this admission: 05/08/17 - Critical Care Critical Care patient: No
--- NOTE | 2017-05-08 15:25 | PN ---
<Jonathan Weber - Last Filed: 05/08/17 15:41> Physical Exam: SUBJECTIVE: Patient seen and examined. Patient states that this morning she has no headache, chest pain, SOB, n/v/d/c. Patient currently menstruating. Patient states she has had a cough since yesterday with white sputum. OBJECTIVE: Vital Signs Period Temp Pulse Resp BP Sys/Wu Pulse Ox Last 24 Hr 98.0 F-99.6 F 81-92 16-20 105-130/62-81 99-99 GENERAL: The patient is awake, alert, and fully oriented, in no acute distress. HEENT: NC, AT NECK: Trachea midline, full range of motion, supple. LUNGS: Breath sounds equal, clear to auscultation bilaterally, no wheezes, no crackles, no accessory muscle use. HEART: Regular rate and rhythm, S1, S2 without murmur, rub or gallop. ABDOMEN: scar 4cm above umbilicus, soft, nontender, nondistended, normoactive bowel sounds, no guarding, no rebound, no hepatosplenomegaly, no masses. EXTREMITIES: 2+ pulses, warm, well-perfused, no edema. NEUROLOGICAL: Cranial nerves II through XII grossly intact. Normal speech, gait not observed. Laboratory Results - last 24 hr 05/07/17 05/07/17 05/07/17 14:15 15:30 15:30 WBC 5.5 RBC 3.90 Hgb 9.9 L D Hct 30.1 L MCV 77.2 L MCH 25.5 L MCHC 33.0 RDW 15.3 Plt Count 85 L D MPV 7.6 Total Counted 100 Neutrophils % No Result Required. Neutrophils % (Manual) 31.0 L Band Neutrophils % 7.0 Lymphocytes % No Result Required. Lymphocytes % (Manual) 49.0 H Monocytes % (Manual) 9 Eosinophils % (Manual) Basophils % (Manual) Myelocytes % (Man) 1 Promyelocytes % (Man) Blast Cells % (Manual) 7 H Nucleated RBC % 7 H Metamyelocytes 2 Differential Comment Hypochromia Platelet Estimate Polychromasia Poikilocytosis Anisocytosis Microcytosis Macrocytosis Tear Drop Cells Ovalocytes PT with INR 12.60 H INR 1.12 Sodium Potassium Chloride Carbon Dioxide Anion Gap BUN Creatinine Creat Clearance w eGFR POC Glucometer Random Glucose Calcium Ferritin Total Bilirubin GGT AST ALT Alkaline Phosphatase Total Protein Albumin Lipase 172 Urine Color Urine Appearance Urine pH Ur Specific [place] Urine Protein Urine Glucose (UA) Urine Ketones Urine Blood Urine Nitrite Urine Bilirubin Urine Urobilinogen Ur Leukocyte Esterase Urine WBC (Auto) Urine RBC (Auto) Ur Epithelial Cells Urine Mucus Urine HCG, Qual HIV 1&2 Antibody Screen HIV P24 Antigen Blood Type Antibody Screen 05/07/17 05/07/17 05/07/17 15:30 15:30 16:01 WBC RBC Hgb Hct MCV MCH MCHC RDW Plt Count MPV Total Counted Neutrophils % Neutrophils % (Manual) Band Neutrophils % Lymphocytes % Lymphocytes % (Manual) Monocytes % (Manual) Eosinophils % (Manual) Basophils % (Manual) Myelocytes % (Man) Promyelocytes % (Man) Blast Cells % (Manual) Nucleated RBC % Metamyelocytes Differential Comment Hypochromia Platelet Estimate Polychromasia Poikilocytosis Anisocytosis Microcytosis Macrocytosis Tear Drop Cells Ovalocytes PT with INR INR Sodium 137 Potassium 3.7 Chloride 101 Carbon Dioxide 28 Anion Gap 8 BUN 6 L Creatinine 0.4 L Creat Clearance w eGFR > 60 POC Glucometer Random Glucose 86 Calcium 7.8 L Ferritin Total Bilirubin 0.5 D GGT AST 116 H ALT 130 H Alkaline Phosphatase 546 H Total Protein 7.3 Albumin 2.9 L Lipase Urine Color Yellow Urine Appearance Clear Urine pH 6.0 Ur Specific [place] 1.014 Urine Protein 1+ H Urine Glucose (UA) Negative Urine Ketones Negative Urine Blood 1+ H Urine Nitrite Negative Urine Bilirubin Negative Urine Urobilinogen 2.0 H Ur Leukocyte Esterase Negative Urine WBC (Auto) 2 Urine RBC (Auto) 1 Ur Epithelial Cells Rare Urine Mucus Rare Urine HCG, Qual HIV 1&2 Antibody Screen HIV P24 Antigen Blood Type O POSITIVE Antibody Screen Negative 05/07/17 05/07/17 05/08/17 16:11 22:47 07:10 WBC RBC Hgb Hct MCV MCH MCHC RDW Plt Count MPV Total Counted Neutrophils % Neutrophils % (Manual) Band Neutrophils % Lymphocytes % Lymphocytes % (Manual) Monocytes % (Manual) Eosinophils % (Manual) Basophils % (Manual) Myelocytes % (Man) Promyelocytes % (Man) Blast Cells % (Manual) Nucleated RBC % Metamyelocytes Differential Comment Hypochromia Platelet Estimate Polychromasia Poikilocytosis Anisocytosis Microcytosis Macrocytosis Tear Drop Cells Ovalocytes PT with INR INR Sodium Potassium Chloride Carbon Dioxide Anion Gap BUN Creatinine Creat Clearance w eGFR POC Glucometer 103.42032 100.60155 Random Glucose Calcium Ferritin Total Bilirubin GGT AST ALT Alkaline Phosphatase Total Protein Albumin Lipase Urine Color Urine Appearance Urine pH Ur Specific [place] Urine Protein Urine Glucose (UA) Urine Ketones Urine Blood Urine Nitrite Urine Bilirubin Urine Urobilinogen Ur Leukocyte Esterase Urine WBC (Auto) Urine RBC (Auto) Ur Epithelial Cells Urine Mucus Urine HCG, Qual Negative HIV 1&2 Antibody Screen HIV P24 Antigen Blood Type Antibody Screen 05/08/17 05/08/17 05/08/17 08:22 08:22 08:22 WBC 4.1 RBC 3.45 L Hgb 8.5 L D Hct 26.9 L MCV 77.9 L MCH 24.7 L MCHC 31.6 L RDW 15.6 Plt Count 60 L D MPV 7.4 L Total Counted Neutrophils % No Result Required. Neutrophils % (Manual) 29.3 L Band Neutrophils % 8.1 Lymphocytes % No Result Required. Lymphocytes % (Manual) 53.5 H Monocytes % (Manual) 1 L D Eosinophils % (Manual) 3.0 Basophils % (Manual) 0.0 Myelocytes % (Man) 0 D Promyelocytes % (Man) 0 Blast Cells % (Manual) Nucleated RBC % 4 H Metamyelocytes 1 D Differential Comment Hypochromia 0 Platelet Estimate Decreased Polychromasia 1+ Poikilocytosis 1+ Anisocytosis 3+ Microcytosis 3+ Macrocytosis 0 Tear Drop Cells 1+ Ovalocytes 1+ PT with INR INR Sodium 140 Potassium 3.6 Chloride 106 Carbon Dioxide 24 Anion Gap 10 BUN 6 L Creatinine 0.3 L Creat Clearance w eGFR > 60 POC Glucometer Random Glucose 78 Calcium 7.6 L Ferritin 904.289 H Total Bilirubin 0.3 D GGT 345 H AST 73 H ALT 99 H Alkaline Phosphatase 513 H Total Protein 6.3 L Albumin 2.5 L Lipase Urine Color Urine Appearance Urine pH Ur Specific [place] Urine Protein Urine Glucose (UA) Urine Ketones Urine Blood Urine Nitrite Urine Bilirubin Urine Urobilinogen Ur Leukocyte Esterase Urine WBC (Auto) Urine RBC (Auto) Ur Epithelial Cells Urine Mucus Urine HCG, Qual HIV 1&2 Antibody Screen HIV P24 Antigen Blood Type Antibody Screen 05/08/17 05/08/17 08:22 11:53 WBC RBC Hgb Hct MCV MCH MCHC RDW Plt Count MPV Total Counted Neutrophils % Neutrophils % (Manual) Band Neutrophils % Lymphocytes % Lymphocytes % (Manual) Monocytes % (Manual) Eosinophils % (Manual) Basophils % (Manual) Myelocytes % (Man) Promyelocytes % (Man) Blast Cells % (Manual) Nucleated RBC % Metamyelocytes Differential Comment Hypochromia Platelet Estimate Polychromasia Poikilocytosis Anisocytosis Microcytosis Macrocytosis Tear Drop Cells Ovalocytes PT with INR INR Sodium Potassium Chloride Carbon Dioxide Anion Gap BUN Creatinine Creat Clearance w eGFR POC Glucometer 84 Random Glucose Calcium Ferritin Total Bilirubin GGT AST ALT Alkaline Phosphatase Total Protein Albumin Lipase Urine Color Urine Appearance Urine pH Ur Specific [place] Urine Protein Urine Glucose (UA) Urine Ketones Urine Blood Urine Nitrite Urine Bilirubin Urine Urobilinogen Ur Leukocyte Esterase Urine WBC (Auto) Urine RBC (Auto) Ur Epithelial Cells Urine Mucus Urine HCG, Qual HIV 1&2 Antibody Screen Negative HIV P24 Antigen Negative Blood Type Antibody Screen Active Medications Generic Name Dose Route Start Last Admin Trade Name Freq PRN Reason Stop Dose Admin Diphenhydramine HCl 12.5 mg 05/07/17 16:02 05/07/17 16:22 Benadryl Injection - IVPUSH 12.5 mg Q4H PRN Administration FOR ITCHING Insulin Aspart 1 vial 05/07/17 22:00 05/08/17 12:07 Novolog Vial Sliding Scale - SQ Not Given ACHS DANNI Protocol Ondansetron HCl 4 mg 05/07/17 19:06 Zofran - PO Q4H PRN NAUSEA ASSESSMENT/PLAN: 36F s/p recent lap jimbo presenting with constitutional symptoms, referred by PMD for elevated blast cells and metamyelocytes found on blood smear, admitted for workup of cancer. #constitutional symptoms/abnormal smear -r/o leukemia -elevated blasts/metamyelocytes found on smear again -heme/onc consulted, f/u recs -surgery on board, recs appreciated. sxs unlikely to be related to prior surgery -zofran for nausea #elevated liver enzymes -likely 2/2 leukemia -abdominal US showing small collection in gallbladder fossa; cannot r/o infection/bile leak -LFTs trending down, continue to trend -f/u hepatitis panel -HIV: negative -f/u tylenol level -f/u Utox #thrombocytopenia -likely 2/2 leukemia -trending down -continue to trend #microcytic anemia -likely 2/2 leukemia vs. menometrorhhagia -f/u iron studies -ferritin: 904, elevated -Hgb 9.9--> 8.5 -continue to trend #prediabetes -hemoglobin A1C on recent lab work- 6.4 -BGM -ISS #FEN/ppx -po fluids -electrolytes wnl -diabetic diet -no GI ppx indicated Case discussed with attending, Dr. Parsons. -Jonathan Weber MD PGY1 Visit type - Emergency Visit Emergency Visit: Yes ED Registration Date: 05/07/17 Care time: The patient presented to the Emergency Department on the above date and was hospitalized for further evaluation of their emergent condition. - New Patient This patient is new to me today: Yes Date on this admission: 05/08/17 - Critical Care Critical Care patient: No <Dwight Parsons - Last Filed: 05/08/17 18:20> Physical Exam: Patient seen and examined with Dr. Weber. Agree with above findings and plan of care with exceptions mentioned below. Primary hematological disorder high on differential. Hematology input appreciated. Follow up recs. ID input. CT chest/Abdomen/pelvis to assess for lymphadenopathy. Follow up flow cytometry studies. Reports father with a 'blood disorder'. Trend LFTs. no abdominal symptoms, surgery input noted, unlikely from recent CCY. Monitor for menorrhagia, if continues with worsening platelets, may need to transfuse. Plan discussed with patient in detail, all questions answered.
[2017-05-08 16:27] LABS: COCAINE, UR NEGATIVE ng/ml (CUTOFF=300); METHADONE, UR NEGATIVE ng/ml (CUTOFF=300); OPIATES, URI NEGATIVE ng/ml (CUTOFF=300); PHENCYCLIDINE,URINE NEGATIVE ng/ml (CUTOFF=25); URINE AMPHETAMINES NEGATIVE ng/ml (CUTOFF=500); URINE BARBITURATES NEGATIVE ng/ml (CUTOFF=200); URINE BENZODIAZEPINES NEGATIVE ng/ml (CUTOFF=200)
--- NOTE | 2017-05-08 16:32 | CONSULT ---
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 ROS : decreased appetite , unintentional wt loss over the past month. She is s/ p lap jimbo on 04/23/17. She denies fever, chills, n, v, d, abdominal pain, chest pain, sob, leg swelling, recent travel ,+ sick contacts, 2kids with cough but not real illnes . Family brought in lab work from day prior that was significant for blasts cells and metamyelocytes on cbc. - History Source History Provided By: Patient, Medical Record - Past Medical History ...LMP: 05/08/17 ...: No - Alcohol/Substance Use Hx Alcohol Use: No - Smoking History Smoking history: Never smoked Have you smoked in the past 12 months: No Home Medications - Allergies Allergies/Adverse Reactions: Allergies Allergy/AdvReac Type Severity Reaction Status Date / Time No Known Drug Allergies Allergy Verified 05/07/17 13:38 - Home Medications Home Medications: Ambulatory Orders NK [No Known Home Medication] 05/07/17 Review of Systems - Review of Systems Constitutional: reports: Diaphoresis, Loss of Appetite, Malaise, Night Sweats, Unintentional Wgt. Loss (?decreased PO intake as per her post surgery), Weakness HENT: denies: Difficult Swallowing Neck: denies: Decreased ROM, Lumps, Pain on Movement Cardiovascular: denies: Chest Pain Respiratory: reports: Cough. denies: Exercise Intolerance, Hemoptysis, Orthopnea, SOB, SOB on Exertion, Wheezing Gastrointestinal: denies: Abdominal Pain Genitourinary: denies: Burning Physical Exam Vital Signs: Vital Signs Temperature 99.6 F 05/08/17 14:00 Pulse Rate 91 H 05/08/17 14:00 Respiratory Rate 20 05/08/17 14:00 Blood Pressure 107/68 05/08/17 14:00 O2 Sat by Pulse Oximetry (%) 99 05/08/17 06:00 Constitutional: Yes: No Distress, Anxious Eyes: Yes: Conjunctiva Clear HENT: Yes: Atraumatic, Normocephalic Neck: Yes: Supple, Trachea Midline. No: Lymphadenopathy Cardiovascular: Yes: Regular Rate and Rhythm. No: Tachycardia Respiratory: Yes: Regular, CTA Bilaterally Gastrointestinal: Yes: Normal Bowel Sounds, Soft. No: Splenomegaly Musculoskeletal: No: Joint Stiffness, Joint Swelling, Muscle Pain Edema: No Neurological: Yes: Alert, Oriented. No: Confusion Labs: CBC, BMP 05/08/17 08:22 05/08/17 08:22 Imaging - Results Cat Scan: Report Reviewed Ultrasound: Report Reviewed Assessment/Plan New onset anemia/thrombocytopenia: Normal numbers less than a month ago peripheral smear, no promyelocytes. +metamyelocytes, few blasts ( have appreciated only 4-5 in all [place]). Decreased platelets. No giant platelets seen. No parasites seen working diagnosis of a primary hematological disorder for now (?acute process). sent Stat flow cytometry ,lab aware, was sent to [facility] this evening. order CT c/a/p r/o LAD stat LDH/Uric acid repeat Coags ?acute viral illness, ID input appreciated ( HIV negative, Hep panel pending). daily CBC/Comp/LDH/uric acid/coags ferritin is elevated, acute phase reactant. start maintainence IVF. close monitoring. d/w resident LFTs rise: ?etiology
[2017-05-08] MEDS: SODIUM CHLORIDE 1,000 ML IV SCH (18:09)
[2017-05-08 18:10] LABS: URIC ACID 2.9 mg/dL (2.6-7.2)
[2017-05-08] MEDS: ALLOPURINOL 300 MG TABLET (FP) PO SCH (18:52)
[2017-05-09] MEDS ORDERED: IBUPROFEN 400 MG TABLET (FP) PO ONE (00:26)
[2017-05-09 06:08] LABS: SERUM IRON SATURATION 47 % (15-55); TOTAL IRON BINDING CAPACITY 266 ug/dL (250-450); UIBC 141 ug/dL (131-425)
[2017-05-09] MEDS: INSULIN SLIDING SCALE (NOVOLOG) 1 VIAL SQ SCH ×2 (06:20→11:12)
[2017-05-09] MEDS: SODIUM CHLORIDE 1,000 ML IV SCH (06:39)
[2017-05-09 08:27] LABS: INR 1.11 (0.82-1.09); PROTHROMBIN TIME (PATIENT) 12.5 SEC (9.98-11.88)
[2017-05-09 08:29] LABS: ACTIVATED PTT 32.7 SECONDS (26.9-34.4)
[2017-05-09 08:36] LABS: HEMATOCRIT 25.8 % (32.4-45.2); HEMOGLOBIN 8.3 GM/dL (10.7-15.3); MCH 25.1 pg (25.7-33.7); MCHC 32.1 g/dl (32.0-36.0); MEAN PLT VOLUME 7.3 fl (7.5-11.1); PLATELET COUNT 50 K/MM3 (134-434); RDW 15.5 % (11.6-15.6); WHITE BLOOD COUNT 3.6 K/mm3 (4.0-10.0)
--- NOTE | 2017-05-09 09:01 | PN ---
Progress Note (short form) - Note Progress Note: ID This 36 year old [place] female admitted for abnormal CBC. Had uneventful Lap jimbo surgery here 04/23 same day. Over th last week or so headaches generalized body aches with night sweats. Went to her PMD and CBC showed blasts and metamyelocytes. Denies fevers. Mild cuph last 2 days. Lives home with and kids and no one else ill. [place] immigrant in [place] for years. Denies other medical illness CT shows hepatosplenomegaly with intracortical hypodensities unclear etiology. Selected Entries 05/09/17 05:26 Temperature 98.2 F Pulse Rate 90 Respiratory 20 Rate Blood Pressure 110/68 Alert Diaphoretic Lung Clear Cor S1 S2 RR no murmur Abd Soft nontender no organomegaly Ext NO CCE Microbiology 05/08/17 07:00 Blood - Arterial Blood Parasites Smear (CARTER) - Final 05/08/17 01:40 Nasopharyngeal Swab Influenza Types A,B Antigen (CARTER) - Preliminary 05/08/17 01:40 Nasopharyngeal Swab - Preliminary Laboratory Tests 05/07/17 05/08/17 05/08/17 15:30 08:22 16:00 WBC Hgb Plt Count AST 116 H ALT 130 H Alkaline Phosphatase 546 H LD Total 881 H Total Protein 7.3 Albumin 2.9 L DORIE Screen HIV 1&2 Antibody Screen Negative HIV P24 Antigen Negative 05/09/17 05/09/17 07:00 07:00 WBC 3.6 L Hgb 8.3 L Plt Count 50 L AST ALT Alkaline Phosphatase LD Total Total Protein Albumin DORIE Screen Pending HIV 1&2 Antibody Screen HIV P24 Antigen Assessment Suspect primary hematologic disorder LDH 881 Viral illness less likely CMV EBV acute HIV Has history of latent TB so Extrapulmonary TB in the differential but should not cause the LDH to go so high Infiltrative disease of the liver but seems to rapid for onset of TB with hepatosplenomegaly since her recent surgery ?? Plan EBV profile CMV serology with PCR HIV RNA quant Toxoplasmosis serology HSV serology Quant gold Urine for AFB Consider marrow with cultures AFB fungi Consider liver biopsy if no improvement of LFTS CRP DORIE Cordova MD Problem List - Problems (1) Pancytopenia Code(s): D61.818 - OTHER PANCYTOPENIA (2) Elevated liver enzymes Code(s): R74.8 - ABNORMAL LEVELS OF OTHER SERUM ENZYMES
[2017-05-09 09:31] LABS: ALBUMIN 2.4 g/dl (3.4-5.0); ANION GAP 9 (8-16); BLOOD UREA NITROGEN 5 mg/dL (7-18); CALCIUM 7.9 mg/dL (8.5-10.1); CHLORIDE 107 mmol/L (98-107); CO2 26 mmol/L (21-32); CREATININE 0.3 mg/dL (0.55-1.02); GLUCOSE,RANDOM 77 mg/dL (74-106); POTASSIUM 3.6 mmol/L (3.5-5.1); SGOT/AST 67 U/L (15-37); SODIUM 142 mmol/L (136-145)
[2017-05-09 09:33] LABS: ALK PHOS 575 U/L (45-117); BILIRUBIN,TOTAL 0.5 mg/dL (0.2-1.0); SGPT/ALT 86 U/L (12-78); TOT PROT 6.3 g/dl (6.4-8.2)
[2017-05-09 09:37] LABS: LDH 759 U/L (84-246)
[2017-05-09 10:05] LABS: PLATELET ESTIMATE DECREASED
[2017-05-09] MEDS: ALLOPURINOL 300 MG TABLET (FP) PO SCH (11:12)
--- NOTE | 2017-05-09 12:52 | PN ---
Physical Exam: SUBJECTIVE: Patient seen and examined headache overnight controlled with Tylenol. No other new complaints; body weakness has improved. denies fever, chills, n, v, abdominal pain. OBJECTIVE: Vital Signs Period Temp Pulse Resp BP Sys/Wu Pulse Ox Last 24 Hr 98.2 F-99.6 F 90-91 20-20 107-110/68-68 GENERAL: The patient is awake, alert, and fully oriented, in no acute distress. HEAD: Normal with no signs of trauma. LUNGS: Breath sounds equal, clear to auscultation bilaterally, no wheezes, no crackles, no accessory muscle use. HEART: Regular rate and rhythm, S1, S2 without murmur, rub or gallop. ABDOMEN: Soft, nontender, nondistended, normoactive bowel sounds, no guarding, no rebound, no hepatosplenomegaly, no masses. EXTREMITIES: 2+ pulses, warm, well-perfused, no edema. NEUROLOGICAL: Cranial nerves II through XII grossly intact. Normal speech, gait not observed. PSYCH: Normal mood, normal affect. SKIN: Warm, dry, normal turgor, no rashes or lesions noted Laboratory Results - last 24 hr 05/08/17 05/08/17 05/08/17 08:00 08:22 13:35 WBC RBC Hgb Hct MCV MCH MCHC RDW Plt Count MPV Neutrophils % Neutrophils % (Manual) Band Neutrophils % Lymphocytes % Lymphocytes % (Manual) Monocytes % (Manual) Eosinophils % (Manual) Basophils % (Manual) Myelocytes % (Man) Promyelocytes % (Man) Blast Cells % (Manual) Nucleated RBC % Metamyelocytes Platelet Estimate Platelet Comment ESR PT with INR INR PTT (Actin FS) Fibrinogen Sodium Potassium Chloride Carbon Dioxide Anion Gap BUN Creatinine Creat Clearance w eGFR POC Glucometer Random Glucose Uric Acid Calcium Iron 125 TIBC 266 Iron Saturation 47 Total Bilirubin AST ALT Alkaline Phosphatase LD Total C-Reactive Protein Total Protein Albumin Beta HCG, Quant < 1.0 Opiates Screen Negative Methadone Screen Negative Barbiturate Screen Negative Phencyclidine Screen Negative Ur Amphetamines Screen Negative MDMA (Ecstasy) Screen Negative Benzodiazepines Screen Negative Cocaine Screen Negative U Marijuana (THC) Screen Negative Hepatitis A IgM Ab Negative Hep Bs Antigen Negative Hep B Core IgM Ab Negative Hepatitis C Antibody <0.1 05/08/17 05/08/17 05/08/17 16:00 17:56 21:03 WBC RBC Hgb Hct MCV MCH MCHC RDW Plt Count MPV Neutrophils % Neutrophils % (Manual) Band Neutrophils % Lymphocytes % Lymphocytes % (Manual) Monocytes % (Manual) Eosinophils % (Manual) Basophils % (Manual) Myelocytes % (Man) Promyelocytes % (Man) Blast Cells % (Manual) Nucleated RBC % Metamyelocytes Platelet Estimate Platelet Comment ESR PT with INR INR PTT (Actin FS) Fibrinogen Sodium Potassium Chloride Carbon Dioxide Anion Gap BUN Creatinine Creat Clearance w eGFR POC Glucometer 111 88 Random Glucose Uric Acid 2.9 Calcium Iron TIBC Iron Saturation Total Bilirubin AST ALT Alkaline Phosphatase LD Total 881 H C-Reactive Protein Total Protein Albumin Beta HCG, Quant Opiates Screen Methadone Screen Barbiturate Screen Phencyclidine Screen Ur Amphetamines Screen MDMA (Ecstasy) Screen Benzodiazepines Screen Cocaine Screen U Marijuana (THC) Screen Hepatitis A IgM Ab Hep Bs Antigen Hep B Core IgM Ab Hepatitis C Antibody 05/09/17 05/09/17 05/09/17 06:05 07:00 07:00 WBC 3.6 L RBC 3.30 L Hgb 8.3 L Hct 25.8 L MCV 78.0 L MCH 25.1 L MCHC 32.1 RDW 15.5 Plt Count 50 L MPV 7.3 L Neutrophils % No Result Required. Neutrophils % (Manual) 30.9 L Band Neutrophils % 2.1 Lymphocytes % No Result Required. Lymphocytes % (Manual) 41.2 H D Monocytes % (Manual) 3 L D Eosinophils % (Manual) 1.0 Basophils % (Manual) 0.0 Myelocytes % (Man) 2 D Promyelocytes % (Man) 0 Blast Cells % (Manual) 2 H D Nucleated RBC % 5 H Metamyelocytes 3 H D Platelet Estimate Decreased Platelet Comment Present ESR PT with INR INR PTT (Actin FS) Fibrinogen Sodium 142 Potassium 3.6 Chloride 107 Carbon Dioxide 26 Anion Gap 9 BUN 5 L Creatinine 0.3 L Creat Clearance w eGFR > 60 POC Glucometer 95 Random Glucose 77 Uric Acid 2.0 L D Calcium 7.9 L Iron TIBC Iron Saturation Total Bilirubin 0.5 D AST 67 H ALT 86 H Alkaline Phosphatase 575 H LD Total 759 H C-Reactive Protein Total Protein 6.3 L Albumin 2.4 L Beta HCG, Quant Opiates Screen Methadone Screen Barbiturate Screen Phencyclidine Screen Ur Amphetamines Screen MDMA (Ecstasy) Screen Benzodiazepines Screen Cocaine Screen U Marijuana (THC) Screen Hepatitis A IgM Ab Hep Bs Antigen Hep B Core IgM Ab Hepatitis C Antibody 05/09/17 05/09/17 05/09/17 07:00 07:00 07:00 WBC RBC Hgb Hct MCV MCH MCHC RDW Plt Count MPV Neutrophils % Neutrophils % (Manual) Band Neutrophils % Lymphocytes % Lymphocytes % (Manual) Monocytes % (Manual) Eosinophils % (Manual) Basophils % (Manual) Myelocytes % (Man) Promyelocytes % (Man) Blast Cells % (Manual) Nucleated RBC % Metamyelocytes Platelet Estimate Platelet Comment ESR 88 H PT with INR 12.50 H INR 1.11 PTT (Actin FS) 32.7 Fibrinogen 460.0 Sodium Potassium Chloride Carbon Dioxide Anion Gap BUN Creatinine Creat Clearance w eGFR POC Glucometer Random Glucose Uric Acid Calcium Iron TIBC Iron Saturation Total Bilirubin AST ALT Alkaline Phosphatase LD Total C-Reactive Protein 7.6 H Total Protein Albumin Beta HCG, Quant Opiates Screen Methadone Screen Barbiturate Screen Phencyclidine Screen Ur Amphetamines Screen MDMA (Ecstasy) Screen Benzodiazepines Screen Cocaine Screen U Marijuana (THC) Screen Hepatitis A IgM Ab Hep Bs Antigen Hep B Core IgM Ab Hepatitis C Antibody 05/09/17 10:54 WBC RBC Hgb Hct MCV MCH MCHC RDW Plt Count MPV Neutrophils % Neutrophils % (Manual) Band Neutrophils % Lymphocytes % Lymphocytes % (Manual) Monocytes % (Manual) Eosinophils % (Manual) Basophils % (Manual) Myelocytes % (Man) Promyelocytes % (Man) Blast Cells % (Manual) Nucleated RBC % Metamyelocytes Platelet Estimate Platelet Comment ESR PT with INR INR PTT (Actin FS) Fibrinogen Sodium Potassium Chloride Carbon Dioxide Anion Gap BUN Creatinine Creat Clearance w eGFR POC Glucometer 90 Random Glucose Uric Acid Calcium Iron TIBC Iron Saturation Total Bilirubin AST ALT Alkaline Phosphatase LD Total C-Reactive Protein Total Protein Albumin Beta HCG, Quant Opiates Screen Methadone Screen Barbiturate Screen Phencyclidine Screen Ur Amphetamines Screen MDMA (Ecstasy) Screen Benzodiazepines Screen Cocaine Screen U Marijuana (THC) Screen Hepatitis A IgM Ab Hep Bs Antigen Hep B Core IgM Ab Hepatitis C Antibody Active Medications Generic Name Dose Route Start Last Admin Trade Name Freq PRN Reason Stop Dose Admin Allopurinol 300 mg 05/08/17 18:45 05/09/17 11:12 Zyloprim - PO 300 mg DAILY DANNI Administration Diphenhydramine HCl 12.5 mg 05/07/17 16:02 05/07/17 16:22 Benadryl Injection - IVPUSH 12.5 mg Q4H PRN Administration FOR ITCHING Insulin Aspart 1 vial 05/07/17 22:00 05/09/17 11:12 Novolog Vial Sliding Scale - SQ Not Given ACHS DANNI Protocol Ondansetron HCl 4 mg 05/07/17 19:06 Zofran - PO Q4H PRN NAUSEA ASSESSMENT/PLAN: This is a 36 year old female with generalized weakness and body pain, with recent lap jimbo and lab work stating new blast cells. Will get heme work up. #heme work up in progress -blasts/metamyelocytes found on smear; -pathologist report pending -hiv negative -sarah pending -ESR; elevated -abdominal CT showing hypodnese renal foci; broad differential ; please see report -heme/on on board #elevated liver enzymes:improved -abdominal US sowing fatty area in place of gallbladder; cannot r/o infection/ bile leak -will trend CMP -hepatitis panel; negative #DM: Hemoglobin A1C on recent lab work 6.4 -BGM -insulin ss Fluids: NS 125mls/hr x 1 bag Electrolytes monitor Diet: diabetic VTE: heparin sq Disposition: med surg Case discussed with attending Dr. Issa Hatfield- PGY2 Problem List - Problems (1) Elevated liver enzymes Code(s): R74.8 - ABNORMAL LEVELS OF OTHER SERUM ENZYMES (2) Thrombocytopenia Code(s): D69.6 - THROMBOCYTOPENIA, UNSPECIFIED Visit type - Emergency Visit Emergency Visit: Yes ED Registration Date: 05/07/17 Care time: The patient presented to the Emergency Department on the above date and was hospitalized for further evaluation of their emergent condition. - New Patient This patient is new to me today: No - Critical Care Critical Care patient: No
--- NOTE | 2017-05-09 12:53 | PN ---
Teaching Attending Note Name of Resident: Marilyn Hatfield ATTENDING PHYSICIAN STATEMENT Time of evaluation: 8:20 AM I saw and evaluated the patient. I reviewed the resident's note and discussed the case with the resident. I agree with the resident's findings and plan as documented with exceptions mentioned below. SUBJECTIVE: Patient seen and examined. No complaints. Had some occipital headache earlier, denies currently. OBJECTIVE: Vital Signs Period Temp Pulse Resp BP Sys/Wu Pulse Ox Last 24 Hr 98.2 F-99.6 F 90-91 20-20 107-110/68-68 Intake & Output 05/06/17 05/07/17 05/08/17 05/09/17 23:59 23:59 23:59 23:59 Intake Total 300 2025 Output Total 200 Balance 100 2025 Weight 141 lb 141 lb 11.2 oz General: sitting in bed in no acute distress CVS;S1S2 regular Chest: No rales or wheezing abdomen: soft, NT, ND, positive bowel sounds, unable to appreciate liver margin or spleen on exam Extremities: no edema Home Medication List Medication Instructions Recorded Confirmed Type NK [No Known Home Medication] 05/07/17 05/07/17 History Active Medications Generic Name Dose Route Start Last Admin Trade Name Freq PRN Reason Stop Dose Admin Allopurinol 300 mg 05/08/17 18:45 05/09/17 11:12 Zyloprim - PO 300 mg DAILY DANNI Administration Diphenhydramine HCl 12.5 mg 05/07/17 16:02 05/07/17 16:22 Benadryl Injection - IVPUSH 12.5 mg Q4H PRN Administration FOR ITCHING Insulin Aspart 1 vial 05/09/17 16:30 Novolog Vial Sliding Scale - SQ BIDAC DANNI Protocol Ondansetron HCl 4 mg 05/07/17 19:06 Zofran - PO Q4H PRN NAUSEA Laboratory Results - last 24 hr 05/08/17 05/08/17 05/08/17 08:00 08:22 13:35 WBC RBC Hgb Hct MCV MCH MCHC RDW Plt Count MPV Neutrophils % Neutrophils % (Manual) Band Neutrophils % Lymphocytes % Lymphocytes % (Manual) Monocytes % (Manual) Eosinophils % (Manual) Basophils % (Manual) Myelocytes % (Man) Promyelocytes % (Man) Blast Cells % (Manual) Nucleated RBC % Metamyelocytes Platelet Estimate Platelet Comment ESR PT with INR INR PTT (Actin FS) Fibrinogen Sodium Potassium Chloride Carbon Dioxide Anion Gap BUN Creatinine Creat Clearance w eGFR POC Glucometer Random Glucose Uric Acid Calcium Iron 125 TIBC 266 Iron Saturation 47 Total Bilirubin AST ALT Alkaline Phosphatase LD Total C-Reactive Protein Total Protein Albumin Beta HCG, Quant < 1.0 Opiates Screen Negative Methadone Screen Negative Barbiturate Screen Negative Phencyclidine Screen Negative Ur Amphetamines Screen Negative MDMA (Ecstasy) Screen Negative Benzodiazepines Screen Negative Cocaine Screen Negative U Marijuana (THC) Screen Negative Hepatitis A IgM Ab Negative Hep Bs Antigen Negative Hep B Core IgM Ab Negative Hepatitis C Antibody <0.1 05/08/17 05/08/17 05/08/17 16:00 17:56 21:03 WBC RBC Hgb Hct MCV MCH MCHC RDW Plt Count MPV Neutrophils % Neutrophils % (Manual) Band Neutrophils % Lymphocytes % Lymphocytes % (Manual) Monocytes % (Manual) Eosinophils % (Manual) Basophils % (Manual) Myelocytes % (Man) Promyelocytes % (Man) Blast Cells % (Manual) Nucleated RBC % Metamyelocytes Platelet Estimate Platelet Comment ESR PT with INR INR PTT (Actin FS) Fibrinogen Sodium Potassium Chloride Carbon Dioxide Anion Gap BUN Creatinine Creat Clearance w eGFR POC Glucometer 111 88 Random Glucose Uric Acid 2.9 Calcium Iron TIBC Iron Saturation Total Bilirubin AST ALT Alkaline Phosphatase LD Total 881 H C-Reactive Protein Total Protein Albumin Beta HCG, Quant Opiates Screen Methadone Screen Barbiturate Screen Phencyclidine Screen Ur Amphetamines Screen MDMA (Ecstasy) Screen Benzodiazepines Screen Cocaine Screen U Marijuana (THC) Screen Hepatitis A IgM Ab Hep Bs Antigen Hep B Core IgM Ab Hepatitis C Antibody 05/09/17 05/09/17 05/09/17 06:05 07:00 07:00 WBC 3.6 L RBC 3.30 L Hgb 8.3 L Hct 25.8 L MCV 78.0 L MCH 25.1 L MCHC 32.1 RDW 15.5 Plt Count 50 L MPV 7.3 L Neutrophils % No Result Required. Neutrophils % (Manual) 30.9 L Band Neutrophils % 2.1 Lymphocytes % No Result Required. Lymphocytes % (Manual) 41.2 H D Monocytes % (Manual) 3 L D Eosinophils % (Manual) 1.0 Basophils % (Manual) 0.0 Myelocytes % (Man) 2 D Promyelocytes % (Man) 0 Blast Cells % (Manual) 2 H D Nucleated RBC % 5 H Metamyelocytes 3 H D Platelet Estimate Decreased Platelet Comment Present ESR PT with INR INR PTT (Actin FS) Fibrinogen Sodium 142 Potassium 3.6 Chloride 107 Carbon Dioxide 26 Anion Gap 9 BUN 5 L Creatinine 0.3 L Creat Clearance w eGFR > 60 POC Glucometer 95 Random Glucose 77 Uric Acid 2.0 L D Calcium 7.9 L Iron TIBC Iron Saturation Total Bilirubin 0.5 D AST 67 H ALT 86 H Alkaline Phosphatase 575 H LD Total 759 H C-Reactive Protein Total Protein 6.3 L Albumin 2.4 L Beta HCG, Quant Opiates Screen Methadone Screen Barbiturate Screen Phencyclidine Screen Ur Amphetamines Screen MDMA (Ecstasy) Screen Benzodiazepines Screen Cocaine Screen U Marijuana (THC) Screen Hepatitis A IgM Ab Hep Bs Antigen Hep B Core IgM Ab Hepatitis C Antibody 05/09/17 05/09/17 05/09/17 07:00 07:00 07:00 WBC RBC Hgb Hct MCV MCH MCHC RDW Plt Count MPV Neutrophils % Neutrophils % (Manual) Band Neutrophils % Lymphocytes % Lymphocytes % (Manual) Monocytes % (Manual) Eosinophils % (Manual) Basophils % (Manual) Myelocytes % (Man) Promyelocytes % (Man) Blast Cells % (Manual) Nucleated RBC % Metamyelocytes Platelet Estimate Platelet Comment ESR 88 H PT with INR 12.50 H INR 1.11 PTT (Actin FS) 32.7 Fibrinogen 460.0 Sodium Potassium Chloride Carbon Dioxide Anion Gap BUN Creatinine Creat Clearance w eGFR POC Glucometer Random Glucose Uric Acid Calcium Iron TIBC Iron Saturation Total Bilirubin AST ALT Alkaline Phosphatase LD Total C-Reactive Protein 7.6 H Total Protein Albumin Beta HCG, Quant Opiates Screen Methadone Screen Barbiturate Screen Phencyclidine Screen Ur Amphetamines Screen MDMA (Ecstasy) Screen Benzodiazepines Screen Cocaine Screen U Marijuana (THC) Screen Hepatitis A IgM Ab Hep Bs Antigen Hep B Core IgM Ab Hepatitis C Antibody 05/09/17 10:54 WBC RBC Hgb Hct MCV MCH MCHC RDW Plt Count MPV Neutrophils % Neutrophils % (Manual) Band Neutrophils % Lymphocytes % Lymphocytes % (Manual) Monocytes % (Manual) Eosinophils % (Manual) Basophils % (Manual) Myelocytes % (Man) Promyelocytes % (Man) Blast Cells % (Manual) Nucleated RBC % Metamyelocytes Platelet Estimate Platelet Comment ESR PT with INR INR PTT (Actin FS) Fibrinogen Sodium Potassium Chloride Carbon Dioxide Anion Gap BUN Creatinine Creat Clearance w eGFR POC Glucometer 90 Random Glucose Uric Acid Calcium Iron TIBC Iron Saturation Total Bilirubin AST ALT Alkaline Phosphatase LD Total C-Reactive Protein Total Protein Albumin Beta HCG, Quant Opiates Screen Methadone Screen Barbiturate Screen Phencyclidine Screen Ur Amphetamines Screen MDMA (Ecstasy) Screen Benzodiazepines Screen Cocaine Screen U Marijuana (THC) Screen Hepatitis A IgM Ab Hep Bs Antigen Hep B Core IgM Ab Hepatitis C Antibody Microbiology 05/08/17 01:40 Nasopharyngeal Swab Influenza Types A,B Antigen (CARTER) - Preliminary 05/08/17 01:40 Nasopharyngeal Swab - Preliminary 05/08/17 07:00 Blood - Arterial Blood Parasites Smear (CARTER) - Final ASSESSMENT AND PLAN: 36 yof with recent lap CCY admitted with constitutional symptoms, pancytopenia, abnormal smear and LFTs -Pancytopenia -Abnormal smear -Abnormal LFTs -New hepatosplenomegaly -recent CCY Plan: ID/hematology input noted. hematological diagnosis high on differential. started on allopurinol. CBC with pancytopenia, continue to monitor. Currently menstruating, monitor platelets and for need for transfusion. Follow CMV/EBV/TB studies. HIV neg. Flow cytometry sent. Anticipate bone marrow biopsy if fails to improve. FOllow up with heme/onc Surgery input noted, no concerns for post surgical compications. Monitor for now. DVTPPX with SCDs when in bed. Dispo planning pending above.
[2017-05-09 14:57] VITALS: BP 127/76; PULSE 104; TEMP 100.1
[2017-05-09] MEDS ORDERED: INSULIN SLIDING SCALE (NOVOLOG) 1 VIAL SQ SCH (16:30)
--- NOTE | 2017-05-09 17:24 | DS ---
Physical Exam: SUBJECTIVE: Patient seen and examined weakness has improved; eating and drinking oral intake. Electrolytes stable. LFTs improved. CBC diff with blasts. OBJECTIVE: Vital Signs Period Temp Pulse Resp BP Sys/Wu Pulse Ox Last 24 Hr 97.9 F-100.1 F 83-104 18-20 110-127/68-76 PHYSICAL EXAM GENERAL: The patient is awake, alert, and fully oriented, in no acute distress. HEAD: Normal with no signs of trauma. NECK: Trachea midline, full range of motion, supple. LUNGS: Breath sounds equal, clear to auscultation bilaterally, no wheezes, no crackles, no accessory muscle use. HEART: Regular rate and rhythm, S1, S2 without murmur, rub or gallop. ABDOMEN: Soft, nontender, nondistended, normoactive bowel sounds, no guarding, no rebound, no hepatosplenomegaly, no masses. EXTREMITIES: 2+ pulses, warm, well-perfused, no edema. NEUROLOGICAL: Cranial nerves II through XII grossly intact. Normal speech, gait not observed. PSYCH: Normal mood, normal affect. SKIN: Warm, dry, normal turgor, no rashes or lesions noted. LABS Laboratory Results - last 24 hr 05/08/17 05/08/17 05/08/17 08:00 08:22 16:00 WBC RBC Hgb Hct MCV MCH MCHC RDW Plt Count MPV Neutrophils % Neutrophils % (Manual) Band Neutrophils % Lymphocytes % Lymphocytes % (Manual) Monocytes % (Manual) Eosinophils % (Manual) Basophils % (Manual) Myelocytes % (Man) Promyelocytes % (Man) Blast Cells % (Manual) Nucleated RBC % Metamyelocytes Platelet Estimate Platelet Comment ESR PT with INR INR PTT (Actin FS) Fibrinogen Sodium Potassium Chloride Carbon Dioxide Anion Gap BUN Creatinine Creat Clearance w eGFR POC Glucometer Random Glucose Uric Acid 2.9 Calcium Iron 125 TIBC 266 Iron Saturation 47 Total Bilirubin AST ALT Alkaline Phosphatase LD Total 881 H C-Reactive Protein Total Protein Albumin Beta HCG, Quant < 1.0 Hepatitis A IgM Ab Negative Hep Bs Antigen Negative Hep B Core IgM Ab Negative Hepatitis C Antibody <0.1 05/08/17 05/08/17 05/09/17 17:56 21:03 06:05 WBC RBC Hgb Hct MCV MCH MCHC RDW Plt Count MPV Neutrophils % Neutrophils % (Manual) Band Neutrophils % Lymphocytes % Lymphocytes % (Manual) Monocytes % (Manual) Eosinophils % (Manual) Basophils % (Manual) Myelocytes % (Man) Promyelocytes % (Man) Blast Cells % (Manual) Nucleated RBC % Metamyelocytes Platelet Estimate Platelet Comment ESR PT with INR INR PTT (Actin FS) Fibrinogen Sodium Potassium Chloride Carbon Dioxide Anion Gap BUN Creatinine Creat Clearance w eGFR POC Glucometer 111 88 95 Random Glucose Uric Acid Calcium Iron TIBC Iron Saturation Total Bilirubin AST ALT Alkaline Phosphatase LD Total C-Reactive Protein Total Protein Albumin Beta HCG, Quant Hepatitis A IgM Ab Hep Bs Antigen Hep B Core IgM Ab Hepatitis C Antibody 05/09/17 05/09/17 05/09/17 07:00 07:00 07:00 WBC 3.6 L RBC 3.30 L Hgb 8.3 L Hct 25.8 L MCV 78.0 L MCH 25.1 L MCHC 32.1 RDW 15.5 Plt Count 50 L MPV 7.3 L Neutrophils % No Result Required. Neutrophils % (Manual) 30.9 L Band Neutrophils % 2.1 Lymphocytes % No Result Required. Lymphocytes % (Manual) 41.2 H D Monocytes % (Manual) 3 L D Eosinophils % (Manual) 1.0 Basophils % (Manual) 0.0 Myelocytes % (Man) 2 D Promyelocytes % (Man) 0 Blast Cells % (Manual) 2 H D Nucleated RBC % 5 H Metamyelocytes 3 H D Platelet Estimate Decreased Platelet Comment Present ESR PT with INR 12.50 H INR 1.11 PTT (Actin FS) 32.7 Fibrinogen 460.0 Sodium 142 Potassium 3.6 Chloride 107 Carbon Dioxide 26 Anion Gap 9 BUN 5 L Creatinine 0.3 L Creat Clearance w eGFR > 60 POC Glucometer Random Glucose 77 Uric Acid 2.0 L D Calcium 7.9 L Iron TIBC Iron Saturation Total Bilirubin 0.5 D AST 67 H ALT 86 H Alkaline Phosphatase 575 H LD Total 759 H C-Reactive Protein Total Protein 6.3 L Albumin 2.4 L Beta HCG, Quant Hepatitis A IgM Ab Hep Bs Antigen Hep B Core IgM Ab Hepatitis C Antibody 05/09/17 05/09/17 05/09/17 07:00 07:00 10:54 WBC RBC Hgb Hct MCV MCH MCHC RDW Plt Count MPV Neutrophils % Neutrophils % (Manual) Band Neutrophils % Lymphocytes % Lymphocytes % (Manual) Monocytes % (Manual) Eosinophils % (Manual) Basophils % (Manual) Myelocytes % (Man) Promyelocytes % (Man) Blast Cells % (Manual) Nucleated RBC % Metamyelocytes Platelet Estimate Platelet Comment ESR 88 H PT with INR INR PTT (Actin FS) Fibrinogen Sodium Potassium Chloride Carbon Dioxide Anion Gap BUN Creatinine Creat Clearance w eGFR POC Glucometer 90 Random Glucose Uric Acid Calcium Iron TIBC Iron Saturation Total Bilirubin AST ALT Alkaline Phosphatase LD Total C-Reactive Protein 7.6 H Total Protein Albumin Beta HCG, Quant Hepatitis A IgM Ab Hep Bs Antigen Hep B Core IgM Ab Hepatitis C Antibody HOSPITAL COURSE: Date of Admission:05/07/17 Date of Discharge: 05/09/17 This is a 36 year old female with a recent history of laproscopic cholecystectomy, who presented to the emergency room with weakness and body aches for three days prior to admission. Laboratory studies revealed new onset anemia and thrombocytopenia. Peripheral smear +metamyelocytes and blasts with elevated LDH and uric acid. Pathology indicated new acute lymphoblastic leukemia. [facility] Heme/Onc contacted; she is accepted for transfer by Dr. Surinder Malhotra. . 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 We are transferring you to [facility] for treatment. Referrals: Isa Christianson MD [Primary Care Provider] - Disposition: TRANSFER ACUTE CARE/OTHER HOSP - Home Medications Comprehensive Discharge Medication List: Ambulatory Orders Allopurinol [Zyloprim -] 300 mg PO DAILY tablet 05/09/17 Diphenhydramine [Benadryl Injection -] 12.5 mg IVPUSH Q4H PRN vial 05/09/17 Insulin Sliding Scale [Novolog Vial Sliding Scale -] 1 vial SQ BIDAC units Ondansetron [Zofran -] 4 mg PO Q4H PRN tablet 05/09/17 Problem List - Problems (1) Elevated liver enzymes Code(s): R74.8 - ABNORMAL LEVELS OF OTHER SERUM ENZYMES (2) Thrombocytopenia Code(s): D69.6 - THROMBOCYTOPENIA, UNSPECIFIED This patient is new to me today: No Emergency Visit: Yes ED Registration Date: 05/07/17 Care time: The patient presented to the Emergency Department on the above date and was hospitalized for further evaluation of their emergent condition. Critical Care patient: No - Discharge Referral Referred to [facility] No
--- NOTE | 2017-05-12 18:08 | PATH ---
Surgical Pathology Report Patient Name: CASSANDRA AARON [facility]. Rec. #: [id number] /Age/Gender: 1980 (Age: 36) / F Account: [id number] Location: [address] [place] [address] Taken: 05/08/2017 Received: 05/11/2017 Reported: 05/12/2017 Physicians: Sana Proctor M.D. Specimen(s) Received PERIPHERAL BLOOD Clinical History Blasts on peripheral smear Final Diagnosis COMPREHENSIVE FLOW PANEL performed and interpreted at [facility] [place], [place] ([id number]) shows the following: INTERPRETATION: An immature B-cell population, 25% of total events, is detected, see comment. CD34+ blasts are 0.3% of total events. Comment: The findings are probably best interpreted as peripheral blood involvement may by B lymphoblastic leukemia/lymphoma. Correlation with complete bone marrow evaluation (including flow cytometry immunophenotyping and cytogenetic studies) is suggested. See [facility] report ([id number]) for additional details. 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 No evidence of deletion 5q or monosomy 5 is present. No evidence of deletion 7q or monosomy 7 is present. No evidence of trisomy 8 (+8) is present. No evidence of rearrangement of 11q23. No evidence of a deletion of the p53 (17p13) locus. No evidence of deletion 20q12 is present See [facility] report ([id number]) for additional details. Electronically Signed Marisa Madrid M.D. Addendum Reported: 05/13/2017 Addendum Diagnosis ADDITIONAL PROBE IN MYELODYSPLASIA FISH PANEL shows: No BCR/ABL1 t(9;22) translocation is detected. Marisa Madrid M.D. Gross Description Received are 2 green top tubes of peripheral blood which are sent [facility]. /05/11/2017 saudi/05/11/2017
== END 2017-05-09 17:36 | disposition short-term general hospital (02) | DRG 690 ==
LOC: JER 13:32 → JERBED 19:02 → J6S 05-08 12:08
PROVIDERS: ADMIT Internal Medicine; ATTEND Hospitalist
DX: C91.00 Acute lymphoblastic leukemia not having achieved remission (principal); R74.8 Abnormal levels of other serum enzymes; D69.6 Thrombocytopenia, unspecified; M79.1 Myalgia; R51 Headache; R63.4 Abnormal weight loss; Z68.27 Body mass index [BMI] 27.0-27.9, adult; R73.03 Prediabetes; D64.9 Anemia, unspecified; D61.818 Other pancytopenia; R16.2 Hepatomegaly with splenomegaly, not elsewhere classified
CPT/HCPCS: 36415; 70450-TC; 71260-TC; 74177-TC; 76705-TC; 80053; 80074; 80307; 81003; 81015; 82728; 82955; 82962; 82977; 83540; 83550; 83615; 83690; 84550; 84702; 84703; 85025; 85041; 85384; 85610; 85651; 85730; 86038; 86140; 86480; 86850; 86900; 86901; 87040; 87207; 87389; 87804; 88300-TC; 93971-TC; 99285-25